=== PATIENT | female | born 1990 | race Caucasian/White ===

== ENCOUNTER 2016-11-10 03:08 | Inpatient (IN) | payer OTHER ==
[~2016-11-10] VITALS: Ht 162.6 cm; Wt 84.3 kg
[2016-11-10] MEDS ORDERED: PRENAT PO (03:27)
[2016-11-10 03:28] VITALS: Ht 162.6 cm; Wt 84.3 kg
[2016-11-10 03:29] VITALS: BP 120/73; PULSE 86; RESP 18
[2016-11-10] MEDS ORDERED: LACTATED RINGER'S 1,000 ML IV SCH ×2 (03:31)
[2016-11-10 03:45] VITALS: BP 130/65; PULSE 82; RESP 18
--- NOTE | 2016-11-10 03:45 | TRIAGE ---
OB Triage Datetime Report Generated by CPN: 11/10/2016 03:44 Datetime: 11/10/2016 03:30 Time of Arrival: 11/10/2016 03:30 EGA: 40.4 Arrived By: Wheelchair Arrived From: TRIAGE Datetime: 11/10/2016 03:19 Vaginal Exam Dilatation (cms): 4.5 Effacement (%): 90 Station: -2 Exam By: Twan Gonzalez RN Membrane Status: Bulging Vaginal Bleeding: Normal Show Cervix, Consistency: Soft Cervix, Position: Posterior Presentation 'A': Cephalic Datetime: 11/10/2016 03:16 Stage of : OB Triage Assessment Type: Triage Time of Arrival: 11/10/2016 03:03 EGA: 40.4 Arrived By: Ambulatory Arrived From: Home Chief Complaint: Contractions Movement: Present Contractions: Regular Time Contractions Began: 11/10/2016 01:00 Contractions: Every 5 minutes Rupture of Membranes: Denies Vaginal Bleeding: None Vaginal Discharge: Denies Recent Sexual Intercouse: Denies Abdominal Trauma: Not Applicable Patient Complaints: Contractions Time Provider Notified: 11/10/2016 03:23 Provider Notified: Dr. Ramos Initial Plan: CEFM, VE Maternal Assessment Level of Consciousness: Fully Conscious DTR's/Clonus: DTRs 2+; No Clonus Headache: Denies Blurred Vision: No Respiratory Effort: Unlabored; Regular Rhythm; Equal Expansion Breath Sounds, Left: Clear and Equal Breath Sounds, Right: Clear and Equal Nausea/Vomiting: Denies RUQ Epigastric Pain: Denies Lower Extremities Edema: None Degree: None Upper Extremities Edema: None Degree: None Facial Edema: None Temperature Route: Oral Fall Risk Assessment History of Falling: (0) No Secondary Diagnosis: (0) No Ambulatory Aid: (0) Bedrest/Nurse Assist IV Therapy: (0) No Gait: (0) Normal/Bedrest/Immobile Mental Status: (0) Oriented to Own Ability Fall Score: 0 Fall Risk Score Definition: No Risk: No action required Pain Assessment Pain Scale: 6 Pain Presence: Intermittent Pain Type: Cramping Pain Location: Abdomen Datetime: 11/07/2016 10:13 Labor Evaluation Frequency: 1-2 Monitor Mode: External Duration (sec)2399: 40-60 Quality: Mild Contraction Comments: pt. denies uc's, cramping, or back pain Heart Rate FHR Baseline Rate: 145 Monitor Mode: External US Variability: Moderate 6-25 bpm Accelerations: 15X15 Decelerations: None Comments: periods on 135 baseline Datetime: 11/07/2016 09:32 Stage of : OB Triage Datetime: 11/07/2016 09:06 Assessment Type: Triage Maternal Assessment Level of Consciousness: Fully Conscious DTR's/Clonus: DTRs 2+; No Clonus Headache: Denies Blurred Vision: No Respiratory Effort: Unlabored; Regular Rhythm; Equal Expansion Breath Sounds, Left: Clear and Equal Breath Sounds, Right: Clear and Equal Nausea/Vomiting: Denies RUQ Epigastric Pain: Denies Lower Extremities Edema: None Upper Extremities Edema: None Facial Edema: None Fall Risk Assessment History of Falling: (0) No Secondary Diagnosis: (0) No Ambulatory Aid: (0) Bedrest/Nurse Assist IV Therapy: (0) No Gait: (0) Normal/Bedrest/Immobile Mental Status: (0) Oriented to Own Ability Fall Score: 0 Fall Risk Score Definition: No Risk: No action required Datetime: 11/07/2016 09:05 Time of Arrival: 11/07/2016 08:50 EGA: 40.1 Arrived By: Ambulatory Arrived From: Home Chief Complaint: pt. here w/ order for nst, bpp, efw for post dates Movement: Present Contractions: Irregular Rupture of Membranes: Denies Vaginal Bleeding: None Vaginal Discharge: Denies Recent Sexual Intercouse: Denies Abdominal Trauma: Not Applicable Patient Complaints: None Time Provider Notified: 11/07/2016 09:15 Provider Notified: denise Heart Rate FHR Baseline Rate: 145 Monitor Mode: External US Variability: Moderate 6-25 bpm Decelerations: None Datetime: 11/07/2016 09:00 Maternal Assessment Level of Consciousness: Fully Conscious DTR's/Clonus: DTRs 2+ Headache: Denies Blurred Vision: No Nausea/Vomiting: Denies RUQ Epigastric Pain: Denies Facial Edema: None Pain Presence: None/Denies
[2016-11-10] MEDS ORDERED: OXYTOCIN 30 UNITS/LR 500 ML IV SCH (04:00)
[2016-11-10] MEDS ORDERED: OXYTOCIN 30 UNITS/LR 500 ML IV PRN (04:00)
[2016-11-10] MEDS ORDERED: METHYLERGONOVINE 0.2 MG INJ IM PRN (04:00)
[2016-11-10] MEDS ORDERED: LIDOCAINE 1% (MPF) 30 ML INJ INJ PRN (04:00)
[2016-11-10] MEDS ORDERED: BUTORPHANOL 2 MG INJ IV PRN (04:00)
[2016-11-10] MEDS ORDERED: MISOPROSTOL 200 MCG TAB PR PRN (04:00)
[2016-11-10] MEDS ORDERED: IBUPROFEN 600 MG TAB PO PRN (04:00)
[2016-11-10] MEDS ORDERED: LACTATED RINGER'S 1,000 ML IV PRN (04:00)
[2016-11-10] MEDS ORDERED: CARBOPROST 250 MCG INJ IM PRN (04:00)
[2016-11-10 04:09] LABS: INR 0.91; PROTIME 12.3 Sec (12.2-14.2)
[2016-11-10 04:10] LABS: PARTIAL THROMBOPLASTIN TIME 28.7 Sec (25.0-35.0)
[2016-11-10 04:12] LABS: EOSINOPHILS % 0.3 % (0.0-7.0); HEMATOCRIT 36.4 % (37.0-47.0); HEMOGLOBIN 12.3 g/dl (12.0-16.0); LYMPHOCYTES % 14.6 % (15.0-51.0); MEAN CORPUSCULAR HEMOGLOBIN 30.7 pg (29.0-33.0); MEAN CORPUSCULAR HGB CONC 33.6 g/dl (32.0-37.0); MEAN CORPUSCULAR VOLUME 91.1 fl (82.0-101.0); MEAN PLATELET VOLUME 9.6 fl (7.4-10.4); MONOCYTE # 0.6 10^3/ul (0.3-0.9); MONOCYTES % 4.2 % (0.0-11.0); NEUTROPHIL # 10.9 10^3/ul (1.6-7.5); NEUTROPHILS % 80.9 % (39.0-77.0); PLATELET COUNT 250 10^3/UL (140-440); RED CELL DISTRIBUTION WIDTH 13.4 % (11.5-14.5); UNCORRECTED WBC 13.5 10^3/ul (4.8-10.8); WHITE BLOOD COUNT 13.5 10^3/ul (4.8-10.8)
[2016-11-10 04:15] LABS: CONDITION 1
[2016-11-10] MEDS ORDERED: FENTAnyl 2MCG/ML-ROPIV 0.2% 100 ML ONE (04:54)
[2016-11-10] MEDS ORDERED: LACTATED RINGER'S 1,000 ML IV ONE (05:24)
[2016-11-10] MEDS ORDERED: NALOXONE (0.4 MG/ML) INJ IV PRN (05:30)
[2016-11-10] MEDS ORDERED: FENTAnyl 2MCG/ML-ROPIV 0.2% 100 ML BAG EPI SCH (05:30)
[2016-11-10] MEDS ORDERED: HYDROmorphONE 1 MG/ML SYG IV PRN ×2 (05:30)
[2016-11-10] MEDS ORDERED: ONDANSETRON 4 MG INJ IV PRN ×2 (05:30→16:30)
[2016-11-10] MEDS ORDERED: DIPHENHYDRAMINE 50 MG INJ IV PRN (05:30)
[2016-11-10] MEDS ORDERED: KETOROLAC 30 MG INJ IV PRN (05:30)
[2016-11-10] MEDS ORDERED: PROCHLORPERAZINE 10 MG INJ IV PRN (05:30)
[2016-11-10] MEDS: OXYTOCIN 30 UNITS/LR 500 ML IV SCH ×4 (12:37→20:28)
--- NOTE | 2016-11-10 13:25 | HP ---
Date/Time of Note Date/Time of Note DATE: 11/10/16 TIME: 13:15 OB - History Hx of Present Free Text/Dictation 25 years old [place] female 1 para 0 with EDC November 06/2016 admitted to in active labor, on admission her vital signs were stable temperature 98.2 pulse 86 respiration 18 and blood pressure 120/73 vaginal examination cervical dilatation 4-5 cm 90 percent effacement vertex presentation at -1 station position occiput posterior Chief Complaint: labor pain Estimated Due Date: Nov 06, 2016 : 1 Para: 0 Spontaneous : 0 Therapeutic : 0 Care: Good Care Ultrasounds: Normal mid trimester US Obstetrical Complications: None Medical Complications: None Past Family/Social History * Past Medical, Surgical, Family and Obstetric Histories reviewed from chart. Rubella: immune RPR/VDRL: Negative GBS Status: Negative OB Admission Exam Vital Signs Vital Signs Vital Signs Date Time Temp Pulse Resp B/P Pulse Ox O2 Delivery O2 Flow Rate FiO2 11/10/16 03:45 98.2 82 18 130/65 Room Air Physical Exam HEENT: WNL Heart: Rhythm Normal Abdomen: WNL Extremities: Normal Reflexes: Normal Cervical Dilatation: 5cm Effacement: Other (90%) Station: -1 Amniotic Fluid: Thin Meconium Heart Rate: 130's Accelerations: Accelerations Present Varibility: Moderate Contractions on Admission: < 5 Minutes Apart Intensity: Firm Last 72 hours Lab Results CBC & BMP 11/10/16 03:40 SIN TERAN MD Nov 10, 2016 13:25
--- NOTE | 2016-11-10 13:40 | LDN ---
Date/Time of Note Date/Time of Note DATE: 11/10/16 TIME: 13:25 Delivery Summary Normal spontaneous vaginal delivery of a baby girl from lot position with spontaneous rotation to occiput anterior shoulders delivered without any difficulty rest of the baby's body followed ,cord clamped after stopped pulsation cord was meconium stained, placenta spontaneous expulsion meconium stained membranes, inspected complete placenta sent to pathology patient sustained a third degree laceration involving anal mucosa, anal mucosa approximated with 3-0 chromic catgut superficial levator ani approximated suturing with 2 interrupted 2-0 chromic catgut perineal mucosa approximated and paired with 3-0 chromic catgut perineal skin approximated and closed with 3-0 chromic catgut at the end digital rectal examination no suture material felt in the rectal mucosa as well as anal mucosa estimated blood loss 250 mL Problems: Delivery Information Sex Infant Sex: female Apgars 1 Minute: 7 5 Minute: 9 Suctioning Nose & mouth suctioned at terrell: Yes Delee suction performed: Yes Umbilical Cord Umbilical cord with: 3 Vessels Cord presentations: no nuchal cord Cord Blood was obtained: Yes SIN TERAN MD Nov 10, 2016 13:39
--- NOTE | 2016-11-10 14:45 | OPRPT ---
Intraop Record Datetime Report Generated by CPN: 11/10/2016 14:44 Datetime: 11/10/2016 03:23 Drug Allergies/Reactions: No Known Allergy (11/10/2016) Datetime: 11/07/2016 09:05 Latex Allergies/Reactions: No Latex Allergies Datetime: 11/04/2016 16:11 Drug Allergies/Reactions: No Known Allergy (01/14/2012)
--- NOTE | 2016-11-10 14:45 | DELSUM ---
Delivery Summary A-C Datetime Report Generated by CPN: 11/10/2016 14:44 DELIVERY PERSONNEL Ink Grinder: Jaylene Steen MATERNAL INFORMATION Delivery Anesthesia: Epidural Medications in Delivery: 30 UNITS PITOCIN IN 500 ML LR Estimated Blood Loss (ml): 250 Placenta Cultured: No Maternal Complications: None LABOR SUMMARY EDC: 11/06/2016 00:00 No. Babies in Womb: 1 Attempted: No Labor Anesthesia: Epidural LABOR INFORMATION Reason for Induction: Not Applicable Onset of Labor: 11/10/2016 01:00 Complete Dilatation: 11/10/2016 11:22 Oxytocin: N/A Group B Beta Strep: Negative Antibiotics # of Doses: 0 Antibiotics Time of Last Dose: 0 Steroids Given: None Reason Steroids Not Administered: Not Applicable MEMBRANES Membranes Rupture Method: Spontaneous Rupture of Membranes: 11/10/2016 08:54 Length of Rupture (hr): 3.68 Amniotic Fluid Color: Heavy Meconium Amniotic Fluid Amount: Large Amniotic Fluid Odor: Normal STAGES OF LABOR Stage 1 hr: 10 Stage 1 min: 22 Stage 2 hr: 1 Stage 2 min: 13 Stage 3 hr: 0 Stage 3 min: 4 Total Time in Labor hr: 11 Total Time in Labor min: 39 VAGINAL DELIVERY Episiotomy: None Laceration Extension: Fourth Degree Laceration Type: Perineal Laceration Repair: Yes Initial Vag Sponge Count: 20 Final Vag Sponge Count: 20 Initial Vag Sharps Count: 2 Final Vag Sharps Count: 2 Sponge Count Correct: Yes; Vaginal Sweep Performed Sharps Count Correct: Yes BABY A INFORMATION Infant Delivery Date/Time: 11/10/2016 12:35 Method of Delivery: Vaginal Method of Delivery: Vaginal Born in Route : No : N/A Forceps: N/A Vacuum Extraction: N/A Shoulder Dystocia : N/A SHOULDER DYSTOCIA BABY A Delivery Date/Time: 11/10/2016 12:35 PRESENTATION/POSITION BABY A Presentation: Cephalic Presentation: Cephalic Cephalic Presentation: Vertex Cephalic Presentation: Vertex Vertex Position: Right Occipital Posterior Breech Presentation: N/A Breech Presentation: N/A PLACENTA INFORMATION BABY A Placenta Delivery Time : 11/10/2016 12:39 Placenta Method of Delivery: Spontaneous Placenta Method of Delivery: Spontaneous Placenta Status: Delivered SCORES BABY A Heart Rate 1 min: >100 bpm Resp Effort 1 min: Slow, Irregular Reflex Irritability 1 min: Cough/Sneeze/Pulls Away Muscle Tone 1 min: Active Motion Color 1 min: Blue/Pale SCORE 1 MIN: 7 Heart Rate 5 min: >100 bpm Resp Effort 5 min: Good Cry Reflex Irritability 5 min: Cough/Sneeze/Pulls Away Muscle Tone 5 min: Active Motion Color 5 min: Body [place], Extremit Blue SCORE 5 MIN: 9 INFANT INFORMATION BABY A Gestational Age at Delivery: 40.4 Gestational Status: Full Term- 39- 40.6 Weeks Outcome : Liveborn Condition : Stable Infant Condition : Stable Infant Sex: Female Sex: Female IDENTIFICATION/MEDS BABY A ID Band Number: [id number] ID Band Location: Right Leg; Left Arm Sensor Applied: Yes Sensor Number: [id number] Sensor Location : Cord Clamp Vitamin K Given : Not Given Erythromycin Given: Not Given WEIGHT/LENGTH BABY A Infant Birthweight (gm): 3510 Infant Weight (lb): 7 Weight (oz): 12 Infant Length (in): 20.00 Infant Length (cm): 50.80 CORD INFORMATION BABY A No. Cord Vessels: 3 Nuchal Cord : N/A Cord Blood Taken: Yes Suction: Mouth; Nose ASSESSMENT BABY A Infant Complications: Meconium Infant Complications- Other: THICK MEC.6 ML OF THICK MUCOUS SUCTIONED.CPAP O2 @25%GIVEN. Physical Findings at Delivery: Within Normal Limits Physical Findings- Other: AT 1302BLOOD SUGAR 124 Respirations: Grunting; Nasal Flaring; Sternal Retractions [employer] Salesperson/ALS Called : Yes Care By: pravin rt/ gaviota rn Transferred To: NICU
[2016-11-10 15:45] VITALS: BP 120/69; PULSE 73; RESP 20
[2016-11-10] MEDS ORDERED: LANOLIN 7 GM TUBE TOP PRN (16:30)
[2016-11-10] MEDS ORDERED: DIBUCAINE 1% 30 GM OINT PR PRN (16:30)
[2016-11-10] MEDS ORDERED: OXYCODONE/ASPIRIN (4.88/325) TAB PO PRN ×2 (16:30)
[2016-11-10] MEDS ORDERED: ACETAMINOPHEN 325 MG TAB PO PRN (16:30)
[2016-11-10] MEDS ORDERED: ACETAMINOPHEN/CODEINE #3 TAB PO PRN ×2 (16:30)
[2016-11-10] MEDS: WITCH HAZEL/GLYCERIN PAD PR PRN (17:15)
[2016-11-10] MEDS: BENZOCAINE 20% 56 ML SPRAY TOP PRN (17:16)
[2016-11-10] MEDS: IBUPROFEN 600 MG TAB PO SCH ×2 (18:00→23:44)
[2016-11-10 20:00] VITALS: BP 103/74; PULSE 74; RESP 20
[2016-11-10] MEDS: SENNA/DOCUSATE NA (8.6MG/50MG) TAB PO SCH (20:28)
[2016-11-11 04:00] VITALS: BP 104/56; PULSE 76; RESP 18
[2016-11-11] MEDS: IBUPROFEN 600 MG TAB PO SCH ×4 (05:29→23:37)
[2016-11-11 06:41] LABS: BASOPHIL # 0.1 10^3/ul (0.0-0.1); BASOPHILS % 0.4 % (0.0-2.0); EOSINOPHILS # 0.1 10^3/ul (0.0-0.5); HEMATOCRIT 30.5 % (37.0-47.0); HEMOGLOBIN 10.3 g/dl (12.0-16.0); LYMPHOCYTES # 3.1 10^3/ul (0.8-2.9); LYMPHOCYTES % 22.1 % (15.0-51.0); MEAN CORPUSCULAR HEMOGLOBIN 30.9 pg (29.0-33.0); MEAN CORPUSCULAR HGB CONC 33.7 g/dl (32.0-37.0); MEAN CORPUSCULAR VOLUME 91.7 fl (82.0-101.0); MEAN PLATELET VOLUME 10.4 fl (7.4-10.4); MONOCYTE # 0.5 10^3/ul (0.3-0.9); MONOCYTES % 3.8 % (0.0-11.0); NEUTROPHIL # 10.1 10^3/ul (1.6-7.5); NEUTROPHILS % 72.7 % (39.0-77.0); PLATELET COUNT 222 10^3/UL (140-440); RED BLOOD COUNT 3.33 10^6/ul (4.20-5.40); RED CELL DISTRIBUTION WIDTH 14.1 % (11.5-14.5); UNCORRECTED WBC 13.9 10^3/ul (4.8-10.8); WHITE BLOOD COUNT 13.9 10^3/ul (4.8-10.8)
[2016-11-11 06:56] LABS: CONDITION 1
[2016-11-11 07:45] VITALS: BP 103/68; PULSE 78; RESP 18
[2016-11-11] MEDS: SENNA/DOCUSATE NA (8.6MG/50MG) TAB PO SCH ×2 (09:17→20:53)
--- NOTE | 2016-11-11 09:47 | PN ---
Date/Time of Note Date/Time of Note DATE: 11/11/16 TIME: 09:46 OB Subjective Subjective Subjective day 1 Vital sign a stable afebrile abdomen soft uterus firm lochia normal extremity normal ambulation recommended Laboratory Tests Test 11/11/16 05:44 Basophils # 0.110^3/ul Basophils % 0.4% Blood Morphology Comment Eosinophils # 0.110^3/ul Eosinophils % 1.0% Hematocrit 30.5% Hemoglobin 10.3g/dl Lymphocytes # 3.110^3/ul Lymphocytes % 22.1% Mean Corpuscular Hemoglobin 30.9pg Mean Corpuscular Hemoglobin Concent 33.7g/dl Mean Corpuscular Volume 91.7fl Mean Platelet Volume 10.4fl Monocytes # 0.510^3/ul Monocytes % 3.8% Neutrophils # 10.110^3/ul Neutrophils % 72.7% Nucleated Red Blood Cells # 0.010^3/ul Nucleated Red Blood Cells % 0.0/100WBC Platelet Count 06467^3/UL Red Blood Count 3.3310^6/ul Red Cell Distribution Width 14.1% White Blood Count 13.910^3/ul Current Medications Medications (Trade) Dose Ordered Sig/Torrie Route PRN Reason Start Time Stop Time Status Last Admin Dose Admin Lactated Ringer's 1,000 ml @ 125 mls/hr Q8H IV 11/10/16 03:31 11/10/16 16:06 DC 11/10/16 04:19 Lactated Ringer's (Lr) 1,000 ml @ 125 mls/hr Q8H IV 11/10/16 03:31 11/10/16 03:39 DC Butorphanol Tartrate (Stadol) 2 mg Q2H PRN IV PAIN 11/10/16 04:00 11/10/16 16:06 DC Lidocaine 30 ml 30 ml ONCE PRN INJ EPISIOTOMY/TEARING 11/10/16 04:00 11/10/16 16:06 DC Oxytocin/Lactated Ringer's 500 ml @ 500 mls/hr ONCE -MAY REPEAT X1 IV 11/10/16 04:00 11/10/16 16:06 DC 11/10/16 13:01 Oxytocin/Lactated Ringer's 500 ml @ 125 mls/hr ONCE IV 11/10/16 04:00 11/10/16 16:06 DC Ibuprofen 600 mg 600 mg ONCE PRN PO Mild Pain (Pain Score 1-3) 11/10/16 04:00 11/10/16 16:06 DC 11/10/16 15:25 Lactated Ringer's 1,000 ml @ 2,000 mls/hr Q30M PRN IV PRE-EPIDURAL BOLUS 11/10/16 04:00 11/10/16 16:06 DC 11/10/16 03:49 Oxytocin/Lactated Ringer's 500 ml @ 0 mls/hr ONCE PRN IV For Hemorrhage Management 11/10/16 04:00 11/10/16 16:06 DC Methylergonovine Maleate (Methergine) 0.2 mg ONCE PRN IM VAGINAL BLEEDING 11/10/16 04:00 11/10/16 16:06 DC Carboprost Tromethamine (Hemabate) 250 mcg ONCE PRN IM VAGINAL BLEEDING 11/10/16 04:00 11/10/16 16:06 DC Misoprostol 1000 mcg 1,000 mcg ONCE PRN RI VAGINAL BLEEDING 11/10/16 04:00 11/10/16 16:06 DC Fentanyl/ Ropivacaine 100 ml @ ud STK-MED ONCE .ROUTE 11/10/16 04:54 11/10/16 04:55 DC Lactated Ringer's (Lr) 1,000 ml @ 1,000 mls/hr Q1H ONCE IV 11/10/16 05:24 11/10/16 06:23 DC 11/10/16 09:29 Naloxone HCl (Narcan) 0.1 mg Q2M PRN IV FOR RESP RATE 8 OR LESS 11/10/16 05:30 11/10/16 16:06 DC Ketorolac Tromethamine (Toradol) 30 mg Q6H PRN IV PAIN 11/10/16 05:30 11/10/16 16:06 DC Hydromorphone HCl (Dilaudid) 0.2 mg Q3H PRN IV PAIN LEVEL 1-5 11/10/16 05:30 11/10/16 16:06 DC Hydromorphone HCl (Dilaudid) 0.4 mg Q3H PRN IV PAIN LEVEL 6-10 11/10/16 05:30 11/10/16 16:06 DC Diphenhydramine HCl (Benadryl) 25 mg Q6H PRN IV ITCHING 11/10/16 05:30 11/10/16 16:06 DC Ondansetron HCl (Zofran Inj) 4 mg Q6H PRN IV NAUSEA AND/OR VOMITING 11/10/16 05:30 11/10/16 16:06 DC Prochlorperazine (Compazine Inj) 10 mg ONCE PRN IV NAUSEA AND/OR VOMITING 11/10/16 05:30 11/10/16 16:06 DC Fentanyl/ Ropivacaine 100 ml 100 ml EPIDURAL INFUSION EPI 11/10/16 05:30 11/10/16 16:06 DC Oxytocin/Lactated Ringer's 500 ml @ 125 mls/hr Q4H IV 11/10/16 16:03 11/11/16 00:02 DC 11/10/16 20:28 Ibuprofen (Motrin) 600 mg Q6 PO 11/10/16 18:00 11/11/16 05:29 Acetaminophen (Tylenol Tab) 650 mg Q4H PRN PO PAIN LEVEL 1-5 11/10/16 16:30 Acetaminophen/ Codeine Phosphate (Tylenol No.3) 1 tab Q4H PRN PO PAIN LEVEL 1-5 11/10/16 16:30 Acetaminophen/ Codeine Phosphate (Tylenol No.3) 2 tab Q4H PRN PO PAIN LEVEL 6-10 11/10/16 16:30 Oxycodone/Aspirin (Percodan) 1 tab Q3H PRN PO PAIN LEVEL 1-5 11/10/16 16:30 Oxycodone/Aspirin (Percodan) 2 tab Q3H PRN PO PAIN LEVEL 6-10 11/10/16 16:30 11/10/16 16:22 Ondansetron HCl (Zofran Inj) 4 mg Q6H PRN IV NAUSEA AND/OR VOMITING 11/10/16 16:30 Senna/Docusate Sodium (Senokot-S) 1 tab BID PO 11/10/16 21:00 11/11/16 09:17 Witch Margarita/ Glycerin (Tucks Pads) 1 pad BEDSIDE MEDICATION PRN RI HEMORRHOID/EPISIOTMY PAIN 11/10/16 16:30 11/10/16 17:15 Benzocaine (Dermoplast Boaz) 1 spray BEDSIDE MEDICATION PRN TOP HEMORRHOID/EPISIOTMY PAIN 11/10/16 16:30 11/10/16 17:16 Dibucaine (Nupercainal) 1 applic BEDSIDE MEDICATION PRN RI HEMORRHOID/EPISIOTMY PAIN 11/10/16 16:30 Lanolin (Sov-F-Pazaqb) 1 applic BEDSIDE MEDICATION PRN TOP BEDSIDE FOR SUSANA TO NIPPLES 11/10/16 16:30 Measles/Mumps/ Rubella Vaccine Live (Mmr Ii Vaccine) 0.5 ml ONCE ONCE SC* 11/12/16 09:00 11/12/16 09:01 SIN TERAN MD Nov 11, 2016 09:47
[2016-11-11 16:00] VITALS: BP 128/80; PULSE 86; RESP 18
[2016-11-11 20:10] VITALS: BP 120/88; PULSE 86; RESP 18
[2016-11-12 04:05] VITALS: BP 106/65; PULSE 76; RESP 18
[2016-11-12] MEDS: IBUPROFEN 600 MG TAB PO SCH ×2 (06:33→11:50)
[2016-11-12] MEDS: BENZOCAINE 20% 56 ML SPRAY TOP PRN (06:37)
[2016-11-12] MEDS: WITCH HAZEL/GLYCERIN PAD PR PRN (06:38)
[2016-11-12 08:38] VITALS: BP 102/65; PULSE 65; RESP 18
[2016-11-12] MEDS: SENNA/DOCUSATE NA (8.6MG/50MG) TAB PO SCH (08:49)
[2016-11-12] MEDS ORDERED: MEASLES,MUMPS,RUBELLA VACCINE INJ SC* ONE (09:00)
--- NOTE | 2016-11-12 14:03 | PD.PPDC ---
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
--- NOTE | 2016-11-12 14:05 | DS ---
Date/Time of Note Date/Time of Note DATE: 11/12/16 TIME: 14:03 Obstetrical Discharge Record Final Diagnosis Final Diagnosis: Term delivered Vaginal Delivery Obstetrical Delivery: Spontaneous Condition on Discharge Physical Assessment Last Vitals: day 2 Vital sign is stable afebrile abdomen soft uterus firm lochia normal extremity normal care instructions given recommended to make appointment for check in 2 weeks Voiding: Yes Bowel Movement: Yes Breast: Soft, non-tender, Filling Fundus: Firm Calf Tenderness: No Patient Condition: Good SIN TERAN MD Nov 12, 2016 14:05
== END 2016-11-12 15:30 | disposition home or self-care (01) | DRG 775 ==
LOC: OBT 03:08 → L-D 03:09 → OBT 03:41 → L-D 03:43 → PP1 15:41
PROVIDERS: ADMIT Obstetrics & Gynecology; ATTEND Obstetrics & Gynecology
PROC: 10E0XZZ Delivery of Products of Conception, External Approach (ICD-10-PCS; principal; 2016-11-10)
PROC: 0DQR0ZZ Repair Anal Sphincter, Open Approach (ICD-10-PCS; 2016-11-10)
DX: O70.3 Fourth degree perineal laceration during delivery (principal); Z37.0 Single live birth; Z3A.40 40 weeks gestation of pregnancy
CPT/HCPCS: 62319; 85025; 85610; 85730; 86592; 86900; 86901; 87340; 99464; G0463; J2590; J3010; J7120

== ENCOUNTER 2016-12-09 20:34 | Inpatient (IN) | payer OTHER ==
[~2016-12-09] VITALS: Ht 162.6 cm; Wt 73.5 kg
[~2016-12-09 20:34] MED LIST: PRENAT PO
[2016-12-10] MEDS ORDERED: ACETAMINOPHEN 325 MG TAB PO STA (01:53)
[2016-12-10] MEDS ORDERED: SODIUM CHLORIDE 0.9% 1L BAG IV* STA (01:53)
[2016-12-10 02:44] LABS: ADD UMIC YES; URINE BILIRUBIN (Dip) NEGATIVE (NEGATIVE); URINE BLOOD (Dip) 1+ (NEGATIVE); URINE COLOR LT. YELLOW (YELLOW); URINE GLUCOSE (Dip) NEGATIVE (NEGATIVE); URINE KETONES (Dip) NEGATIVE (NEGATIVE); URINE LEUKOCYTE ESTERASE (Dip) 2+ (NEGATIVE); URINE NITRITE (Dip) NEGATIVE (NEGATIVE); URINE TOTAL PROTEIN (Dip) NEGATIVE (NEGATIVE); URINE UROBILINOGEN (Dip) 0.2 E.U./dL (0.1-1.0)
--- NOTE | 2016-12-10 02:44 | RADRPT ---
PROCEDURE: CHEST - 1 VIEW CLINICAL INDICATION: 25-year-old female with sepsis. TECHNIQUE: A single frontal AP semi-erect view of the chest was performed portably. The images we re reviewed on a PACS workstation. COMPARISON: None. FINDINGS: The cardiomediastinal silhouette has a normal appearance. There is mild left basilar subsegmental at electasis.. The pulmonary vascularity is within normal limits. There is no evidence for pneumothora x or pneumomediastinum. The osseous structures are intact. IMPRESSION: Mild left basilar subsegmental atelectasis. A superimposed subtle infiltrate cannot be excluded. Cl inical correlation is necessary. .Mejia Esquivel MD, Date Time Electronically viewed and signed by .Mejia Esquivel MD, on 12/10/2016 02:43 .M/
[2016-12-10 02:45] LABS: BASOPHIL # 0.1 10^3/ul (0.0-0.1); BASOPHILS % 0.6 % (0.0-2.0); EOSINOPHILS # 0.1 10^3/ul (0.0-0.5); EOSINOPHILS % 0.3 % (0.0-7.0); HEMATOCRIT 34.3 % (37.0-47.0); HEMOGLOBIN 11.4 g/dl (12.0-16.0); LYMPHOCYTES # 2.8 10^3/ul (0.8-2.9); LYMPHOCYTES % 13.8 % (15.0-51.0); MEAN CORPUSCULAR HEMOGLOBIN 29.5 pg (29.0-33.0); MEAN CORPUSCULAR HGB CONC 33.2 g/dl (32.0-37.0); MEAN CORPUSCULAR VOLUME 88.8 fl (82.0-101.0); MEAN PLATELET VOLUME 9.1 fl (7.4-10.4); MONOCYTE # 0.8 10^3/ul (0.3-0.9); MONOCYTES % 3.9 % (0.0-11.0); NEUTROPHIL # 16.5 10^3/ul (1.6-7.5); NEUTROPHILS % 81.4 % (39.0-77.0); PLATELET COUNT 487 10^3/UL (140-440); RED BLOOD COUNT 3.86 10^6/ul (4.20-5.40); RED CELL DISTRIBUTION WIDTH 13.6 % (11.5-14.5); UNCORRECTED WBC 20.2 10^3/ul (4.8-10.8); WHITE BLOOD COUNT 20.2 10^3/ul (4.8-10.8)
[2016-12-10 02:46] LABS: CONDITION 1; LH ANALYZER COMMENTS 1
[2016-12-10 02:51] LABS: INR 1.05; PROTIME 13.7 Sec (12.2-14.2); PT RATIO 1.1
[2016-12-10 02:52] LABS: PARTIAL THROMBOPLASTIN TIME 34.8 Sec (25.0-35.0)
[2016-12-10 02:59] LABS: BACTERIA,URINE MODERATE; SQUAMOUS EPITHELIAL CELL,UR MODERATE
[2016-12-10 03:00] LABS: ALBUMIN 3.6 g/dl (3.3-4.9); POTASSIUM 3.7 mmol/L (3.5-5.1); SODIUM 143 mmol/L (135-144)
[2016-12-10 03:02] LABS: CREATININE 0.82 mg/dl (0.44-1.00)
[2016-12-10 03:03] LABS: ALANINE AMINOTRANSFERASE 25 IU/L (13-69); ALBUMIN/GLOBULIN RATIO 0.78; ALKALINE PHOSPHATASE 125 IU/L (42-121); ANION GAP 19 (8-16); ASPARTATE AMINO TRANSFERASE 17 IU/L (15-46); BILIRUBIN,INDIRECT 0.2 mg/dl (0-1.1); BILIRUBIN,TOTAL 0.2 mg/dl (0.2-1.3); BLOOD UREA NITROGEN 10 mg/dl (7-20); CARBON DIOXIDE 24 mmol/L (21-31); GLUCOSE 97 mg/dl (70-220); TOTAL PROTEIN 8.2 g/dl (6.1-8.1)
[2016-12-10 03:19] LABS: CHLORIDE 104 mmol/L (97-110); TROPONIN-I < 0.012 ng/ml (0.00-0.12)
[2016-12-10] MEDS ORDERED: CEFTRIAXONE 1 GM/50 ML (PMX) 50 ML IVPB ONE (04:30)
[2016-12-10 07:23] VITALS: TEMP 98.8
[2016-12-10 08:26] VITALS: BP 100/60; RESP 18
[2016-12-10] MEDS ORDERED: ONDANSETRON 4 MG INJ IV PRN (08:30)
[2016-12-10] MEDS ORDERED: ACETAMINOPHEN 325 MG TAB PO PRN (08:30)
[2016-12-10] MEDS ORDERED: morphine 2 MG INJ IV PRN (08:30)
[2016-12-10] MEDS ORDERED: VANCOMYCIN IV PER PHARMACY XX SCH (08:30)
[2016-12-10] MEDS ORDERED: HYDROCODONE/APAP (5/325) TAB PO PRN (08:30)
[2016-12-10] MEDS ORDERED: NACL 0.9% 3 ML SYG IV SCH (08:30)
[2016-12-10 09:00] VITALS: Ht 162.6 cm; Wt 73.5 kg
[2016-12-10] MEDS ORDERED: CEFEPIME 1GM/50 ML (PMX) 50 ML IVPB SCH (09:00)
[2016-12-10] MEDS: HEPARIN 5,000 UNIT/0.5 ML SYG SC SCH ×2 (09:03→21:55)
[2016-12-10] MEDS ORDERED: VANCOMYCIN 1.5 GM in SOD CHLORIDE 0.9% 250 ML IVPB SCH (10:30)
--- NOTE | 2016-12-10 12:03 | HP ---
DATE OF ADMISSION: 12/10/2016 TIME SEEN: 9:00 a.m. CHIEF COMPLAINT: Left breast swelling, redness and pain. HISTORY OF PRESENT ILLNESS: The patient is a 25-year-old female with a history of ovarian cysts, wh o is one month , who presented to the emergency department with the above stated chief com plaint. She states that the redness, swelling and pain on her left breast have been progressively g etting worse and was associated with subjective fever. She is 1 month , but she states th at she has not been breast feeding. As per the patient, the patient was actually seen by the primary care doctor and was given antibiotics, but she stated it did not help, and that is one of the reaso ns she came to the ER. When she presented to the ER, she was febrile with a temperature of 102.9, tachycardic with heart ra te of 119 and she had a white count also at 20,000. The chest x-ray shows that possible infiltrates and ultrasound of the breast did not show any abscess. She was started on antibiotic and admitted for further evaluation. REVIEW OF SYSTEMS: A 12-point review of systems was performed and is negative except as mentioned in HPI. PAST MEDICAL HISTORY: As per HPI. PAST SURGICAL HISTORY: Denies. SOCIAL HISTORY: Denies history of tobacco, alcohol or illicit drug use. ALLERGIES: NO KNOWN DRUG ALLERGIES. CARDIOVASCULAR: Negative. Laboratory data HPI. PAST MEDICAL HISTORY: ALLERGIES: NO KNOWN DRUG ALLERGIES. HOME MEDICATIONS: None. PHYSICAL EXAMINATION: VITAL SIGNS: When she came in, temperature was 102.9, heart rate 119, respiratory rate 20 and blood pressure was within normal limits. GENERAL: The patient is sitting up n on her bed, eating a breakfast. She is not in any acute distr ess. She is cooperative and answering questions appropriately. HEENT: No obvious head deformity. Pupils are reactive to light. Extraocular muscles intact. CARDIOVASCULAR: Tachycardic with regular rhythm. LUNGS: Clear. There is a palpable hardened area with overlying erythema on the left breast which is very tender to touch. No discharge. ABDOMEN: Soft, nontender, nondistended. Positive bowel sounds. EXTREMITIES: No edema. NEUROLOGIC: No focal deficits. LABORATORY: WBC 20,000, hemoglobin 11.4. Otherwise, the rest of her basic labs are within normal l imits. IMAGING: Breast ultrasound and chest x-ray with results as mentioned in the HPI. IMPRESSION: 1. Sepsis secondary to left breast cellulitis/mastitis. 2. Left breast cellulitis/mastitis. 3. Normocytic anemia. We need to evaluate for iron deficiency. 4. History of ovarian cyst. 5. One month . PLAN: Patient will be treated with broad spectrum antibiotic. We will follow up on the blood cultu re results. We will place an ID consult. Will consider additional imaging results of her left andrea st for further evaluation, but as mentioned, ultrasound that was done previously did not show any ab scess. Will check ferritin and iron profile to see if she has iron deficiency. Further workup and management per clinical course. Dictated By: RAGHU LUBIN/MAXINE Conf#: [id number] DID#: [id number]
[2016-12-10] MEDS ORDERED: METHYLPREDNISOLONE 40 MG INJ IM ONE (13:00)
[2016-12-10] MEDS ORDERED: DIPHENHYDRAMINE 50 MG INJ IM PRN (13:00)
[2016-12-10] MEDS ORDERED: METHYLPREDNISOLONE 40 MG INJ IV ONE (13:30)
--- NOTE | 2016-12-10 14:26 | PN ---
Date/Time of Note Date/Time of Note DATE: 12/10/16 TIME: 14:21 Assessment/Plan VTE Prophylaxis VTE Prophylaxis Intervention: SCD's Lines/Catheters IV Catheter Type (from [facility]): Saline Lock Urinary Cath still in place: No Assessment/Plan Chief Complaint/Hosp Course IMPRESSION: 1. Sepsis secondary to left breast cellulitis/mastitis. Versus gastroenteritis 2. Left breast cellulitis/mastitis. ultrasound that was done previously did not show any abscess. 3. Normocytic anemia. We need to evaluate for iron deficiency. 4. History of ovarian cyst. 5. One month . Continue multivitamin Further workup and management per clinical course. Problems: Subjective 24 Hr Interval Summary Free Text/Dictation Patient continues to have left breast discomfort and erythema No nausea vomiting Diarrhea has resolved Exam/Review of Systems Vital Signs Vitals Vital Signs Date Time Temp Pulse Resp B/P Pulse Ox O2 Delivery O2 Flow Rate FiO2 12/10/16 08:26 97.8 89 18 100/60 97 12/10/16 07:23 Room Air Exam General: The patient is well-developed, Not in acute distress. HEENT: Atraumatic, normocephalic. The pupils are equal and round . Neck: Supple with full range of motion. Chest: Normal expansion of the thorax during inspiration, erythema/cellulitis of medial aspect of the left breast, tender to touch Lungs: Clear to auscultation bilaterally Heart: Normal S1-S2, Regular rhythm and rate. Abdomen: Soft , nontender, nondistended , bowel sounds are present. Extremities: Normal to inspection, no edema no cyanosis Neurologic: Normal mental status,The patient is awake, alert and oriented . Results Result Diagram: 12/10/169 12/10/16218 Results 24 hrs Laboratory Tests Test 12/10/16 01:50 12/10/16 02:19 12/10/16 05:40 12/10/16 09:20 Urine Bacteria MODERATE Urine Bilirubin NEGATIVE Urine Clarity SL HAZY Urine Color LT. YELLOW Urine Glucose NEGATIVE Urine Hemoglobin 1+ H Urine Ketones NEGATIVE Urine Leukocyte Esterase 2+ H Urine Microscopic RBC 2-5 Urine Microscopic WBC 10-25 Urine Nitrite NEGATIVE Urine Specific [place] 1.010 Urine Squamous Epithelial Cells MODERATE Urine Total Protein NEGATIVE Urine Urobilinogen 0.2 E.U./dL Urine pH 5.5 Activated Partial Thromboplast Time 34.8 Alanine Aminotransferase (ALT/SGPT) 25 Albumin 3.6 Albumin/Globulin Ratio 0.78 Alkaline Phosphatase 125 H Anion Gap 19 H Aspartate Amino Transf (AST/SGOT) 17 Basophils # 0.1 Basophils % 0.6 Blood Urea Nitrogen 10 Calcium Level 8.0 L Carbon Dioxide Level 24 Chloride Level 104 Creatinine 0.82 Direct Bilirubin 0.00 Eosinophils # 0.1 Eosinophils % 0.3 Globulin 4.60 H Glucose Level 97 Hematocrit 34.3 L Hemoglobin 11.4 L INR International Normalized Ratio 1.05 Indirect Bilirubin 0.2 Lactic Acid Level 1.0 0.8 0.9 Lymphocytes # 2.8 Lymphocytes % 13.8 L Mean Corpuscular Hemoglobin 29.5 Mean Corpuscular Hemoglobin Concent 33.2 Mean Corpuscular Volume 88.8 Mean Platelet Volume 9.1 Monocytes # 0.8 Monocytes % 3.9 Neutrophils # 16.5 H Neutrophils % 81.4 H Nucleated Red Blood Cells # 0.0 Nucleated Red Blood Cells % 0.0 Platelet Count 487 #H Potassium Level 3.7 Prothrombin Time 13.7 Prothrombin Time Ratio 1.1 Red Blood Count 3.86 L Red Cell Distribution Width 13.6 Sodium Level 143 Total Bilirubin 0.2 Total Protein 8.2 H Troponin I < 0.012 White Blood Count 20.2 #H Medications Medications Current Medications Ondansetron HCl (Zofran Inj) 4 mg Q6H PRN IV NAUSEA AND/OR VOMITING; Start 12/10 at 08:30 Acetaminophen (Tylenol Tab) 650 mg Q6H PRN PO PAIN LEVEL 1-3 OR FEVER; Start at 08:30 Acetaminophen/ Hydrocodone Bitart ([place] (5/325)) 1 tab Q6H PRN PO MODERATE PAIN LEVEL 4-6; Start 12/10/16 at 08:30 Morphine Sulfate (morphine) 2 mg Q4H PRN IV SEVERE PAIN LEVEL 7-10; Start at 08:30 Heparin Sodium (Porcine) 5000 unit 5,000 unit Q12 SC Last administered on 09:03; Admin Dose 5,000 UNIT; Start 12/10/16 at 09:00 Cefepime HCl (Maxipime 1gm/50 ml (Pmx)) 50 ml @ 100 mls/hr Q12 IVPB Last administered on 12/10/16 10:22; Admin Dose 100 MLS/HR; Start 12/10/16 at 09:00 Prenat Multivit/ [place]/Iron/Folic Ac ( S) 1 tab DAILY PO ; Start at 09:00 Diphenhydramine HCl (Benadryl) 25 mg Q6H PRN IV redness Last administered on 13:09; Admin Dose 25 MG; Start 12/10/16 at 19:00 CHARLEE GOODE MD Dec 10, 2016 14:25
--- NOTE | 2016-12-10 15:06 | RADRPT ---
PROCEDURE: Bilateral breast ultrasound. CLINICAL INDICATION: Left wrist pain and swelling. TECHNIQUE: High-resolution sonography of both breasts was performed in the axial and sagittal plan es. COMPARISON: No prior study is available for comparison. FINDINGS: There is a region of extensive edema in the left breast 10 o'clock position. An irregular fluid pretty ection is present at this site measuring up to 2.8 x 1.7 cm. The breast parenchyma is otherwise normal with no other cystic or solid mass. IMPRESSION: 1. Extensive edema in the left breast 10 o'clock position with an irregular fluid collection at thi s site measuring up to 2.8 x 1.7 cm. This may be due to early abscess formation. 2. Any further management regarding any breast symptoms should be based upon clinical grounds. RPTAT: QQ .Manjeet Felton MD, Date Time Electronically viewed and signed by .Manjeet Felton MD, on 12/10/2016 15:06 .R/
--- NOTE | 2016-12-10 17:32 | CONS ---
DATE OF ADMISSION: 12/10/2016 DATE OF CONSULTATION: 12/10/2016 TYPE OF CONSULTATION: Infectious Disease. REASON FOR CONSULTATION: Antibiotic management. HISTORY OF PRESENT ILLNESS: Jacob Haines is a 25-year-old female who comes in with left breast swelling, redness and pain. Her past problems include: 1. History of ovarian cyst. 2. She is 1 month . She now presents with left breast swelling with induration, redness and pain. This has been going on for the last 3 weeks, 1 week after the of her child. She holly s not been . She was started on antibiotics by her primary care physician, but it did not help. In the emergency room, she was febrile with temperature of 102.9. She is tachycardic, he art rate of 119 and a white count of 20,000. Chest x-ray showed possible infiltrate. Ultrasound of the breast did not show any abscess, and she was started on vancomycin; however, she had a red man syndrome related to the vancomycin and according to what I can see, the vancomycin was stopped. She is currently on cefepime, but he should be on something that covers staph. As noted, the breast ul trasound showed extensive edema of the left breast at 10 o'clock position with irregular fluid colle ction at the site measuring 2.8 x 1.7. This may be due to early abscess formation . Any further man agement regarding any breast symptoms should be based on clinical grounds, so she does have possible abscess. Chest x-ray: Mild left basilar subsegmental atelectasis, superimposed subtle infiltrate cannot be excluded. PAST MEDICAL HISTORY: Operations as outlined. FAMILY HISTORY: Noncontributory. SOCIAL HISTORY: She does not smoke, drink or abuse drugs. ALLERGIES: NONE TO PENICILLIN, SULFA OR FOODS. MEDICATIONS: Per chart. REVIEW OF SYSTEMS: As per HPI. PHYSICAL EXAMINATION: GENERAL: The patient is a well-developed, well-nourished female who is alert, responsive, in no acu te distress. VITAL SIGNS: T-max of 102.9, heart rate of 119, respirations 20. SKIN: Without generalized rash. HEENT: Within normal limits. NECK: Supple. LYMPH NODES: None palpable. CHEST: Decreased breath sounds at the bases. HEART: Without murmur or gallop. ABDOMEN: Soft, nontender, nondistended. The left breast is indurated at between 8 and 10 o'clock. It is tender and red. HEART: Without murmur or gallop. ABDOMEN: Soft, nontender, without organosplenomegaly or masses. EXTREMITIES: Without cyanosis, clubbing, or edema. RECTAL AND GENITAL: Deferred. NEUROLOGIC: No focal neurological abnormality. IMPRESSION AND PLAN: The patient may require interventional radiology. I will dictate my findings to the hospitalist. Dictated By: KIANA CHAO MD, JD/MAXINE Conf#: [id number] DID#: [id number]
[2016-12-10] MEDS ORDERED: VANCOMYCIN 1 GM in NS 250 ML IVPB SCH (18:30)
[2016-12-10] MEDS ORDERED: DIPHENHYDRAMINE 50 MG INJ IV PRN (19:00)
[2016-12-10 19:43] VITALS: BP 107/61; RESP 20
--- NOTE | 2016-12-10 21:19 | CONS ---
DATE OF ADMISSION: 12/10/2016 DATE OF CONSULTATION: 12/10/2016 HISTORY OF PRESENT ILLNESS: Ms. Haines is a 25-year-old female who is 1 month . She at tempted for 1 week but failed, but for the past 3 weeks, she has noted engorgement of her left breast. Due to her worsening symptoms, she presented to the ER today due to the fact she i s having increased redness, swelling and pain of her left breast. In the ER, she had a temperature of 102.9, a heart rate of 119 and a white count of 20,000. PAST MEDICAL HISTORY: Noncontributory. PAST SURGICAL HISTORY: None. MEDICATIONS: None. ALLERGIES: NO KNOWN DRUG ALLERGIES. PHYSICAL EXAMINATION: GENERAL: She is a well-nourished, well-developed female in no apparent distress. VITAL SIGNS: She is currently afebrile. Vital signs stable. LEFT BREAST: A firm, indurated, fluctuant area consistent with an abscess. CHEST: Clear to auscultation bilaterally. HEART: Regular rhythm. LABORATORY DATA: White count of 20, hematocrit of 34 and platelets of 47. Sodium 143, potassium 3. 7, chloride 104, CO2 24, BUN and creatinine 10 and 0.8, glucose 97. IMAGING: An ultrasound of her breast revealed extensive edema in the left breast at 10-o'clock posi tion with irregular fluid collection measuring 2 x 1.7 cm. ASSESSMENT AND PLAN: Ms. Logan is a 25-year-old female with cellulitis and likely breast abscess . 1. Recommend ultrasound-guided drainage by Interventional Radiology. 2. Continue antibiotics. If symptoms worsen after drainage, please re-consult. Dictated By: RAHUL EUGENE/MAXINE Conf#: [id number] DID#: [id number]
[2016-12-10] MEDS: CLINDAMYCIN 900 MG/D5W (PMX) 50 ML IVPB SCH (21:58)
[2016-12-11 05:44] LABS: BASOPHIL # 0.4 10^3/ul (0.0-0.1); BASOPHILS % 2.7 % (0.0-2.0); HEMATOCRIT 33.8 % (37.0-47.0); HEMOGLOBIN 11.3 g/dl (12.0-16.0); LYMPHOCYTES # 1.9 10^3/ul (0.8-2.9); LYMPHOCYTES % 11.6 % (15.0-51.0); MEAN CORPUSCULAR HEMOGLOBIN 29.8 pg (29.0-33.0); MEAN CORPUSCULAR HGB CONC 33.4 g/dl (32.0-37.0); MEAN CORPUSCULAR VOLUME 89.2 fl (82.0-101.0); MEAN PLATELET VOLUME 9.4 fl (7.4-10.4); MONOCYTE # 0.5 10^3/ul (0.3-0.9); MONOCYTES % 3.1 % (0.0-11.0); NEUTROPHIL # 13.7 10^3/ul (1.6-7.5); NEUTROPHILS % 82.6 % (39.0-77.0); PLATELET COUNT 418 10^3/UL (140-440); RED BLOOD COUNT 3.79 10^6/ul (4.20-5.40); RED CELL DISTRIBUTION WIDTH 13.3 % (11.5-14.5); UNCORRECTED WBC 16.5 10^3/ul (4.8-10.8); WHITE BLOOD COUNT 16.5 10^3/ul (4.8-10.8)
[2016-12-11 06:23] LABS: ALBUMIN 3.2 g/dl (3.3-4.9)
[2016-12-11 06:24] LABS: POTASSIUM 4.4 mmol/L (3.5-5.1)
[2016-12-11 06:26] LABS: ALBUMIN/GLOBULIN RATIO 0.82; CREATININE 0.54 mg/dl (0.44-1.00); TOTAL PROTEIN 7.1 g/dl (6.1-8.1)
[2016-12-11 06:27] LABS: MAGNESIUM 2.2 mg/dl (1.7-2.5); PHOSPHORUS 4.5 mg/dl (2.5-4.9)
[2016-12-11] MEDS: CLINDAMYCIN 900 MG/D5W (PMX) 50 ML IVPB SCH ×3 (06:34→22:00)
[2016-12-11 06:37] LABS: IRON 68 ug/dl (35-150)
[2016-12-11 06:48] LABS: TOTAL IRON BINDING CAPACITY 207 ug/dl (241-421)
[2016-12-11 07:01] LABS: CONDITION 1
[2016-12-11 07:30] VITALS: BP 115/60; RESP 16
[2016-12-11 08:00] VITALS: PULSE 60
[2016-12-11] MEDS: MULTIVIT/MIN/FOLATE/IRON/PREN TAB PO SCH (08:20)
[2016-12-11] MEDS: HEPARIN 5,000 UNIT/0.5 ML SYG SC SCH ×2 (08:36→21:26)
--- NOTE | 2016-12-11 11:22 | PN ---
Date/Time of Note Date/Time of Note DATE: 12/11/16 TIME: 11:20 Assessment/Plan VTE Prophylaxis VTE Prophylaxis Intervention: SCD's Lines/C[facility]ters [facility] Urinary Cath still in place: No Assessment/Plan Chief Complaint/Hosp Course IMPRESSION: 1. Sepsis secondary to left breast cellulitis/mastitis. Versus gastroenteritis Improving 2. Left breast cellulitis/mastitis. ultrasound that was done previously demonstrated possible early abscess General surgery and interventional radiology has been consulted for possible ultrasound-guided drainage 3. Normocytic anemia. Continue to monitor 4. History of ovarian cyst. 5. One month . Continue multivitamin Further workup and management per clinical course. Problems: Subjective 24 Hr Interval Summary Free Text/Dictation Patient denies of any chest pain or shortness of breath Improvement in her left breast erythema and tenderness No nausea vomiting or diarrhea Exam/Review of Systems Vital Signs Vitals Vital Signs Date Time Temp Pulse Resp B/P Pulse Ox O2 Delivery O2 Flow Rate FiO2 12/11/16 08:00 60 12/11/16 07:30 97.7 16 115/60 99 12/10/16 07:23 Room Air Intake and Output 12/10/16 12/10/16 12/11/16 15:00 23:00 07:00 Intake Total 600 ml 580 ml 120 ml Balance 600 ml 580 ml 120 ml Exam General: The patient is well-developed, Not in acute distress. HEENT: Atraumatic, normocephalic. The pupils are equal and round . Neck: Supple with full range of motion. Chest: Normal , decrease in erythema of the left breast with abscess-like mass in the medial aspect of the left breast Lungs: Clear to auscultation bilaterally Heart: Normal S1-S2, Regular rhythm and rate. Abdomen: Soft , nontender, nondistended , bowel sounds are present. Extremities: Normal to inspection, no edema no cyanosis Neurologic: Normal mental status,The patient is awake, alert and oriented . Results Result Diagram: 12/11/16 0500 12/11/16 0505 Results 24 hrs Laboratory Tests Test 12/11/16 05:00 12/11/16 05:05 Basophils # 0.4 H Basophils % 2.7 H Eosinophils # 0.0 Eosinophils % 0.0 Ferritin 191.0 H Hematocrit 33.8 L Hemoglobin 11.3 L Lymphocytes # 1.9 Lymphocytes % 11.6 L Mean Corpuscular Hemoglobin 29.8 Mean Corpuscular Hemoglobin Concent 33.4 Mean Corpuscular Volume 89.2 Mean Platelet Volume 9.4 Monocytes # 0.5 Monocytes % 3.1 Neutrophils # 13.7 H Neutrophils % 82.6 H Nucleated Red Blood Cells # 0.0 Nucleated Red Blood Cells % 0.0 Platelet Count 418 Red Blood Count 3.79 L Red Cell Distribution Width 13.3 White Blood Count 16.5 H Alanine Aminotransferase (ALT/SGPT) 20 Albumin 3.2 L Albumin/Globulin Ratio 0.82 Alkaline Phosphatase 115 Anion Gap 18 H Aspartate Amino Transf (AST/SGOT) 13 L Blood Urea Nitrogen 9 Calcium Level 9.0 Carbon Dioxide Level 23 Chloride Level 108 Creatinine 0.54 Direct Bilirubin 0.00 Globulin 3.90 H Glucose Level 130 Indirect Bilirubin 0.0 Iron Level 68 Magnesium Level 2.2 Percent Iron Saturation 33 Phosphorus Level 4.5 Potassium Level 4.4 Sodium Level 145 H Total Bilirubin 0.0 L Total Iron Binding Capacity 207 L Total Protein 7.1 # Medications Medications Current Medications Ondansetron HCl (Zofran Inj) 4 mg Q6H PRN IV NAUSEA AND/OR VOMITING; Start 12/10 at 08:30 Acetaminophen (Tylenol Tab) 650 mg Q6H PRN PO PAIN LEVEL 1-3 OR FEVER; Start at 08:30 Acetaminophen/ Hydrocodone Bitart ([place] (5/325)) 1 tab Q6H PRN PO MODERATE PAIN LEVEL 4-6; Start 12/10/16 at 08:30 Morphine Sulfate (morphine) 2 mg Q4H PRN IV SEVERE PAIN LEVEL 7-10; Start at 08:30 Heparin Sodium (Porcine) (Heparin (5000 Units/0.5 ml)) 5,000 unit Q12 SC Last administered on 12/11/16 08:36; Admin Dose 5,000 UNIT; Start 12/10/16 at 09:00 Prenat Multivit/ [place]/Iron/Folic Ac ( S) 1 tab DAILY PO Last administered on 12/11/16 08:20; Admin Dose 1 TAB; Start 12/11/16 at 09:00 Diphenhydramine HCl 25 mg 25 mg Q6H PRN IV redness Last administered on 13:09; Admin Dose 25 MG; Start 12/10/16 at 19:00 Clindamycin HCl/ Dextrose (Cleocin 900 Mg/ D5W (Pmx)) 50 ml @ 50 mls/hr Q8 IVPB Last administered on 12/11/16t 06:34; Admin Dose 50 MLS/HR; Start 12/10/16 at 22 :00 CHARLEE GOODE MD Dec 11, 2016 11:22
[2016-12-11] MEDS ORDERED: LIDOCAINE 1% (MPF) 5 ML VIAL ONE (15:26)
--- NOTE | 2016-12-11 16:25 | RADRPT ---
PROCEDURE: Ultrasound guided left breast aspiration. CLINICAL INDICATION: Left breast fluid collection. TECHNIQUE: Prior to the procedure, informed consent was obtained. Risks including bleeding and in fection were explained to the patient. The patient understood was willing to proceed. A procedural pause was performed. The patient's name, date of , and procedure to be performed were verifie d. Using local anesthetic, sterile technique and ultrasound guidance, a 21-gauge needle was advanced in to the irregular fluid collection in the 10 o'clock position of the left breast. 4 ml of cloudy ser osanguineous fluid was aspirated. The needle was removed. The patient tolerated the procedure well . COMPARISON: Left breast ultrasound dated 12/10/2016. FINDINGS: Images demonstrate the needle within the fluid collection in the left breast. IMPRESSION: 1. Satisfactory ultrasound-guided left breast fluid aspiration. RPTAT: QQ .Manjeet Felton MD, Date Time Electronically viewed and signed by .Manjeet Felton MD, on 12/11/2016 16:25 .R/
--- NOTE | 2016-12-11 17:08 | PN ---
DATE: 12/11/2016 INFECTIOUS DISEASE PROGRESS NOTE SUBJECTIVE: No acute changes. The patient is alert, feels better. Looks comfortable. No fevers. WBC today 6.5, neutrophils 82.6, BUN 9, creatinine 0.54. MICROBIOLOGY: Blood cultures have been negative. Stool for C. diff negative. ANTIMICROBIALS: The patient is on IV clindamycin. PHYSICAL EXAMINATION: GENERAL: Well-nourished, well-developed young woman, who is alert, in no distress. HEENT: Head atraumatic, normocephalic. Sclerae are anicteric. Buccal mucosa pink. NECK: Supple. CHEST: Chest rise is symmetrical. Breath sounds clear. HEART: S1, S2. ABDOMEN: Soft. Bowel tones present. EXTREMITIES: Without cyanosis. SKIN: Left breast with decreased edema. Still with some hard area over the medial part and some pa in on palpation. ASSESSMENT: 1. Systemic inflammatory response syndrome. 2. Left breast cellulitis, possible abscess. 3. Status post recent delivery, 1 month . PLAN: The patient remains stable. She is being seen by surgery. She is improving on the current a ntimicrobials. We will continue her on the current regimen. Dictated By: JOSE TRIMBLE GLASS CLEANER for KIANA TATUM/MAXINE Conf#: [id number] DID#: [id number]
[2016-12-11 19:24] VITALS: BP 112/73; RESP 18
[2016-12-11 20:00] VITALS: BP 107/77; PULSE 72; RESP 18
[2016-12-12] MEDS: CLINDAMYCIN 900 MG/D5W (PMX) 50 ML IVPB SCH ×3 (05:31→21:37)
[2016-12-12 06:21] LABS: POTASSIUM 3.9 mmol/L (3.5-5.1)
[2016-12-12 06:23] LABS: CREATININE 0.78 mg/dl (0.44-1.00)
[2016-12-12 06:24] LABS: CALCIUM 8.5 mg/dl (8.4-10.2)
[2016-12-12 06:26] LABS: BASOPHILS % 0.3 % (0.0-2.0); EOSINOPHILS # 0.2 10^3/ul (0.0-0.5); EOSINOPHILS % 1.4 % (0.0-7.0); HEMATOCRIT 32.6 % (37.0-47.0); HEMOGLOBIN 11.2 g/dl (12.0-16.0); LYMPHOCYTES # 2.7 10^3/ul (0.8-2.9); LYMPHOCYTES % 17.9 % (15.0-51.0); MEAN CORPUSCULAR HEMOGLOBIN 30.3 pg (29.0-33.0); MEAN CORPUSCULAR HGB CONC 34.3 g/dl (32.0-37.0); MEAN CORPUSCULAR VOLUME 88.3 fl (82.0-101.0); MONOCYTE # 0.7 10^3/ul (0.3-0.9); MONOCYTES % 4.7 % (0.0-11.0); NEUTROPHIL # 11.5 10^3/ul (1.6-7.5); NEUTROPHILS % 75.7 % (39.0-77.0); PLATELET COUNT 474 10^3/UL (140-440); RED CELL DISTRIBUTION WIDTH 13.9 % (11.5-14.5); UNCORRECTED WBC 15.2 10^3/ul (4.8-10.8); WHITE BLOOD COUNT 15.2 10^3/ul (4.8-10.8)
[2016-12-12 07:42] LABS: CONDITION 1
[2016-12-12 08:10] VITALS: BP 98/59; RESP 18
[2016-12-12] MEDS: MULTIVIT/MIN/FOLATE/IRON/PREN TAB PO SCH (08:11)
[2016-12-12] MEDS: HEPARIN 5,000 UNIT/0.5 ML SYG SC SCH ×2 (08:16→21:46)
[2016-12-12] MEDS ORDERED: LIDOCAINE 1% (MDV) 20 ML INJ SC ONE (15:00)
[2016-12-12] MEDS ORDERED: HYDROmorphONE 1 MG/ML SYG IV PRN (15:30)
[2016-12-12] MEDS ORDERED: LORAZEPAM 2 MG INJ IV PRN (15:30)
[2016-12-12 15:42] LABS: PROTIME 13.2 Sec (12.2-14.2)
[2016-12-12 15:43] LABS: PARTIAL THROMBOPLASTIN TIME 30.8 Sec (25.0-35.0)
--- NOTE | 2016-12-12 15:55 | PDOCDIS ---
Discharge Instructions DIAGNOSIS Discharge Diagnosis: Left breast abscess. CONDITION Patient Condition: Stable HOME CARE INSTRUCTIONS: Special Diet: REGULAR OTHER ORDERS: Other Orders: 1. Complete the course of antibiotics. 2. Regular diet as tolerated. 3. Resume activities as tolerated. 4. Go to the nearest emergency room or call your primary care physician if you have worsening symptoms of left breast redness, swelling, secretions, persistent fevers, or any other unusual signs/symptoms. ABRAHAM MAGANA NP Dec 12, 2016 15:55
--- NOTE | 2016-12-12 16:30 | DS ---
DATE OF ADMISSION: 12/10/2016 DATE OF DISCHARGE: 12/13/2016 FINAL DIAGNOSES: 1. Left breast abscess status post IR-guided drainage. 2. Status post sepsis secondary to left breast abscess. 3. Normocytic, normochromic anemia. CONSULTANTS: 1. Dr. Roni Ring, infectious disease. 2. Dr. Alan Childers, general surgery. 3. Kurt Arias, KETTLE OPERATOR HEAD for infectious disease. HOSPITAL COURSE: This is a 25-year-old female with past medical history of ovarian cysts who is 1 month , currently not , who presented to the emergency department with a chief complaint of left breast swelling, redness, and pain. The patient also reported subjective fevers. The patient apparently saw her primary care doctor outside and was given antibiotics with no improvement in the symptoms. In the emergency room, the patient was noticed to be febrile with a temperature of 102.9 degrees Fahrenheit. The patient was also noticed to have leukocytosis. The patient underwent a breast ultrasound that showed extensive edema in the left breast at 10 o'clock position with an irregular fluid collection at this site measuring up to 2.8 x 1.7 cm. Provided the patient's history of present illness and the diagnostic findings, a clinical decision was made to admit the patient to inpatient setting to have her further evaluated. The patient was admitted to inpatient medical/surgical floor. An infectious disease consult and general surgery consult were called on this patient. The patient's blood culture remained negative. The patient's urine culture was inconclusive, although the patient had a positive urinalysis. The patient was evaluated by general surgery, and general surgery recommended an interventional radiology guided aspiration of the left breast abscess. The patient consequently underwent an ultrasound-guided aspiration of the left breast abscess that drained 4 mL of cloudy serosanguineous fluid. The patient's abscess fluid was positive for Staph. aureus. Meanwhile, the patient's leukocytosis improved, and the patient had no febrile episodes since the day of admission. As per the discussion with infectious disease, the patient is to be discharged home on oral Zyvox versus IV vancomycin; however, the patient had Sena syndrome reaction to IV vancomycin on 12/10/2016. Hence, after discussion with infectious diseases, the patient is going to be discharged home on IV clindamycin. Oral Zyvox will not be available until 12/15/2016 because of insurance reasons. Hence, a clinical decision was made to put a PICC line and to discharge the patient home on IV antibiotics with home health arranged. Hence, the patient had a PICC line inserted on 12/12/2016. Home health was arranged by case management, and the patient is stable to be discharged home. The patient had no significant pain in the left breast that necessitated analgesics. Hence, the patient was not given any prescription for analgesics. The patient had a stable hospital course. The patient was cleared by consultants to be discharged home. DISCHARGE DISPOSITION AND PLAN: The patient will be discharged home today. The patient was instructed to take a regular diet as tolerated. The patient was instructed to complete the course of IV antibiotics. The patient was instructed on PICC line care. The patient was instructed to resume activities as tolerated. The patient was instructed to go to the nearest emergency room if she has worsening symptoms of left breast redness, drainage, persistent fevers, or any other unusual signs or symptoms. The patient verbalized understanding of her discharge instructions. CONDITION AT DISCHARGE: Stable. DISCHARGE MEDICATIONS: Clindamycin 900 mg IV piggyback q. 8 hours (last day 04/2017.) PERTINENT LABORATORY AND DIAGNOSTIC DATA: 1. Chest x-ray upon admission: Mild left basilar subsegmental atelectasis. 2. Breast ultrasound: Extensive edema in the left breast 10 o'clock position with irregular fluid collection at this site measuring up to 2.8 x 1.7 cm. 3. On 12/11/2016, ultrasound-guided aspiration of left breast abscess with 4 mL of cloudy serosanguineous fluid aspirated. 4. Breast abscess culture positive for Staphylococcus aureus. 5. Blood culture x2 negative. 6. Urine culture inconclusive. 7. Stool for C. difficile negative. 8. Stool culture showing Staphylococcus aureus and coliform bacteria. 9. Latest CBC: WBC 15.2, hemoglobin 11.2, hematocrit 32.6, platelet count 474. 10. Latest BMP: Sodium 141, potassium 3.9, chloride 102, carbon dioxide 25, anion gap 18, BUN 13, creatinine 0.7, glucose 93, calcium 8.5. 11. Iron panel: Iron 68, TIBC 207, saturation 33, ferritin 191. At this time, I would like to thank all the consultants for seeing the patient, doing the necessary procedures, and providing clinical recommendations. The case and management of this patient was fully discussed with Dr. Sanchez. Approximately 40 minutes was spent on coordinating the discharge on this patient. ABRAHAM SANCHEZ MD, AM/MAXINE Conf#: [id number] DID#: [id number] MTDD
--- NOTE | 2016-12-12 16:33 | PN ---
DATE: 12/12/2016 SUBJECTIVE: Patient is alert, looks comfortable, wants to go home. No fevers. WBC today 15.2, platelets 474, no shift, no bands. BUN 13, creatinine 0.78. MICROBIOLOGY: This patient had a left breast fluid aspiration that is growing Staphylococcus aureus preliminary. ANTIMICROBIALS: The patient is on IV clindamycin. PHYSICAL EXAMINATION: GENERAL: A well-developed young woman who is alert, in no distress. HEENT: Head atraumatic, normocephalic. Sclerae anicteric. Buccal mucosa pink. NECK: Supple, trachea midline. CHEST: Rise symmetrical. Breath sounds clear. HEART: S1, S2. ABDOMEN: Soft. Bowel tones present. EXTREMITIES: Without cyanosis or edema. SKIN: With left breast resolving erythema, but still with area of hardness on palpation and some p ain. ASSESSMENT: 1. Systemic inflammatory response syndrome. 2. Left breast cellulitis with abscess, status post aspiration of 4 mL only with culture preliminar y growing Staphylococcus aureus. PLAN: The patient remains stable. She is being cleared by surgery for discharge. She still has so me tenderness on palpation of her left breast. We will recommend to send her on IV vancomycin until resolution of her symptoms or IV Bactrim. Another is going to be p.o. Zyvox if insurance approves. Dictated By: JOSE TRIMBLE RESTORATIVE REHAB AIDE for KIANA TATUM/MAXINE Conf#: [id number] DID#: [id number]
--- NOTE | 2016-12-12 16:47 | RADRPT ---
PROCEDURE: XR Chest. CLINICAL INDICATION: PICC line catheter placement. TECHNIQUE: Single frontal view of the chest was obtained COMPARISON: Chest x-ray 12/10/2016. FINDINGS: The soft tissues are normal. The bony elements are normal. The heart, left side aorta, cardiomedias tinal silhouette, pulmonary vasculature and hilar structures are normal. The lungs are clear. The co stophrenic angles are normal. The PICC line catheter enters the left arm with its tip in the superio r vena cava. No pneumothorax is identified. IMPRESSION: 1. Normal chest x-ray. 2. The PICC line catheter is well positioned in the superior vena cava at the junction with the rig ht atrium. RPTAT:AAJJ Physician Simin Date Time Electronically viewed and signed by Physician Simin on 12/12/2016 16:46 JASPER/
--- NOTE | 2016-12-12 16:52 | RADRPT ---
PROCEDURE: US guidance for PICC line CLINICAL INDICATION: PICC line placement TECHNIQUE: Multiple real-time images were acquired of the patient's arm utilizing a high resolutio n transducer. This was performed by the PICC line nurse for venous access. COMPARISON: None FINDINGS: Ultrasound guidance for PICC line placement. IMPRESSION: Ultrasound guidance for PICC line placement. RPTAT: AA .Javier Carcamo MD, MD Date Time Electronically viewed and signed by .Javier Carcamo MD, on 12/12/2016 16:51 .S/
[2016-12-12] MEDS ORDERED: SOD CHLORIDE 0.9% 100 ML ONE (17:00)
--- NOTE | 2016-12-12 19:11 | PN ---
Date/Time of Note Date/Time of Note DATE: 12/12/16 TIME: 19:02 Assessment/Plan VTE Prophylaxis VTE Prophylaxis Intervention: heparin Lines/Catheters [facility] PICC Line Central line still needed: Yes Urinary Cath still in place: No Assessment/Plan Chief Complaint/Hosp Course 1. Left breast abscess. S/P ultrasound guided drainage. Continue antibiotics as per ID. 2. S/P sepsis secondary to left breast abscess. Continue antibiotics as per ID. 3. Fluids, electrolytes, and nutrition. Regular diet as tolerated. 4. DVT prophylaxis. SQ heparin. 5. Gastrointestinal prophylaxis. Not indicated. 6. Plan. Obtain PICC line. Discharge the patient home once PICC line is obtained to complete 2 weeks course of antibiotics. Case discussed with Dr. Sanchez. Problems: Subjective 24 Hr Interval Summary Free Text/Dictation Remains afebrile. Exam/Review of Systems Vital Signs Vitals Vital Signs Date Time Temp Pulse Resp B/P Pulse Ox O2 Delivery O2 Flow Rate FiO2 12/12/16 08:10 99.3 85 18 98/59 97 12/11/16 20:00 Room Air Intake and Output 12/11/16 12/11/16 12/12/16 14:59 22:59 06:59 Intake Total 1620 ml 640 ml Balance 1620 ml 640 ml Exam Constitutional: alert, oriented Head: normocephalic Eyes: EOMI, nl conjunctiva, nl lids ENMT: nl external ears & nose, nl lips & teeth, nl nasal mucosa & septum Neck: non-tender, supple, No jvd Respiratory: clear to auscultation, normal air movement Cardiovascular: regular rate and rhythm, No murmurs/extra sounds Gastrointestinal: bowel sounds, non-tender, soft Musculoskeletal: nl extremities to inspection Extremities: normal pulses, No edema Neurological: ELECTRONIC DATA PROCESSING AUDITOR II-XII intact, nl mental status, nl speech Skin: other (Left breast erythema at 10 o'clock poistion.) Results Result Diagram: 12/12/16 0535 12/12/16 0530 Results 24 hrs Laboratory Tests Test 12/12/16 05:30 12/12/16 05:35 12/12/16 15:20 Anion Gap 18 H Blood Urea Nitrogen 13 Calcium Level 8.5 Carbon Dioxide Level 25 Chloride Level 102 Creatinine 0.78 Glucose Level 95 Potassium Level 3.9 Sodium Level 141 Basophils # 0.0 Basophils % 0.3 Eosinophils # 0.2 Eosinophils % 1.4 Hematocrit 32.6 L Hemoglobin 11.2 L Lymphocytes # 2.7 Lymphocytes % 17.9 Mean Corpuscular Hemoglobin 30.3 Mean Corpuscular Hemoglobin Concent 34.3 Mean Corpuscular Volume 88.3 Mean Platelet Volume 9.0 Monocytes # 0.7 Monocytes % 4.7 Neutrophils # 11.5 H Neutrophils % 75.7 Nucleated Red Blood Cells # 0.0 Nucleated Red Blood Cells % 0.0 Platelet Count 474 H Red Blood Count 3.70 L Red Cell Distribution Width 13.9 White Blood Count 15.2 H Activated Partial Thromboplast Time 30.8 INR International Normalized Ratio 1.00 Prothrombin Time 13.2 Prothrombin Time Ratio 1.0 Medications Medications Current Medications Ondansetron HCl (Zofran Inj) 4 mg Q6H PRN IV NAUSEA AND/OR VOMITING; Start 12/10 at 08:30 Acetaminophen (Tylenol Tab) 650 mg Q6H PRN PO PAIN LEVEL 1-3 OR FEVER; Start at 08:30 Acetaminophen/ Hydrocodone Bitart ([place] (5/325)) 1 tab Q6H PRN PO MODERATE PAIN LEVEL 4-6; Start 12/10/16 at 08:30 Morphine Sulfate (morphine) 2 mg Q4H PRN IV SEVERE PAIN LEVEL 7-10; Start at 08:30 Heparin Sodium (Porcine) (Heparin (5000 Units/0.5 ml)) 5,000 unit Q12 SC Last administered on 12/12/16 08:16; Admin Dose 5,000 UNIT; Start 12/10/16 at 09:00 Prenat Multivit/ [place]/Iron/Folic Ac ( S) 1 tab DAILY PO Last administered on 12/12/16 08:11; Admin Dose 1 TAB; Start 12/11/16 at 09:00 Diphenhydramine HCl 25 mg 25 mg Q6H PRN IV redness Last administered on 13:09; Admin Dose 25 MG; Start 12/10/16 at 19:00 Clindamycin HCl/ Dextrose (Cleocin 900 Mg/ D5W (Pmx)) 50 ml @ 50 mls/hr Q8 IVPB Last administered on 12/12/16 13:33; Admin Dose 50 MLS/HR; Start 12/10/16 at 22 :00 IV Flush (NS 10 ml) 10 ml PRN PRN IV IV PROTOCOL; Start 12/12/16 at 17:30 ABRAHAM MAGANA NP Dec 12, 2016 19:11
[2016-12-12 20:00] VITALS: BP 99/62; PULSE 92; RESP 18
[2016-12-13] MEDS: CLINDAMYCIN 900 MG/D5W (PMX) 50 ML IVPB SCH ×3 (05:42→21:32)
[2016-12-13 07:45] VITALS: BP 97/61; RESP 16
[2016-12-13] MEDS: MULTIVIT/MIN/FOLATE/IRON/PREN TAB PO SCH (08:41)
[2016-12-13] MEDS: HEPARIN 5,000 UNIT/0.5 ML SYG SC SCH ×2 (08:50→21:32)
--- NOTE | 2016-12-13 09:33 | DS ---
Date/Time of Note Date/Time of Note DATE: 12/13/16 TIME: 09:32 Discharge Summary Admission/Discharge Info Admit Date/Time Dec 10, 2016 at 04:40 Discharge Date/Time 12/13/16 Final Diagnosis FINAL DIAGNOSES: 1. Left breast abscess status post IR-guided drainage. 2. Status post sepsis secondary to left breast abscess. 3. Normocytic normochromic anemia. Patient Condition: Stable Consults CONSULTANTS: 1. Dr. Roni Ring, infectious disease. 2. Dr. Alan Childers, general surgery. 3. Kurt Arias, CLAIMS DIRECTOR for infectious disease. Hospital Course HOSPITAL COURSE: This is a 25-year-old female with past medical history of ovarian cysts who is 1 month , currently not , who presented to the emergency department with a chief complaint of left breast swelling, redness, and pain. The patient also reported subjective fevers. The patient apparently saw her primary care doctor outside and was given antibiotics with no improvement in the symptoms. In the emergency room, the patient was noticed to be febrile with temperature of 102.9 degrees Fahrenheit. The patient was also noticed to have leukocytosis. The patient underwent a breast ultrasound that showed extensive edema in the left breast at 10 o'clock position with an irregular fluid collection at this site measuring up to 2.8 x 1.7 cm. Provided the patient's history of present illness and the diagnostic findings, a clinical decision was made to admit the patient to inpatient setting to have her further evaluated. The patient was admitted to inpatient medical/surgical floor. An infectious disease consult and general surgery consult were called on this patient. The patient's blood culture remained negative. The patient's urine culture was inconclusive, although the patient had a positive urinalysis. The patient was evaluated by general surgery, and general surgery recommended an interventional radiology guided aspiration of the left breast abscess. The patient consequently underwent an ultrasound-guided aspiration of the left breast abscess that drained 4 mL of cloudy serosanguineous fluid. The patient's abscess fluid was positive for Staph aureus. Meanwhile, the patient's leukocytosis improved, and the patient had no febrile episodes since the day of admission. Hence, a clinical decision was made to put a PICC line and to discharge the patient home on IV antibiotics with home health arranged. Hence, the patient had a PICC line inserted on 12/12/2016. Home health was arranged by case management, and the patient is stable to be discharged home. The patient had no significant pain in the left breast that necessitated analgesics. Hence, the patient was not given any prescription for analgesics. The patient had a stable hospital course. The patient was cleared by consultants to be discharged home. DISCHARGE DISPOSITION AND PLAN: The patient will be discharged home today. The patient was instructed to take a regular diet as tolerated. The patient was instructed to complete the course of IV antibiotics. The patient was instructed on PICC line care. The patient was instructed to resume activities as tolerated. The patient was instructed to go to the nearest emergency room if she has worsening symptoms of left breast redness, drainage, persistent fevers, or any other unusual signs or symptoms. The patient verbalized understanding of her discharge instructions. CONDITION AT DISCHARGE: Stable. DISCHARGE MEDICATIONS: Please see d/c med list Home Meds Discontinued Reported Medications Multivit/Min/Fol Ac/Iron/Pren* ( S*) 1 Tab Tab, 1 TAB PO DAILY, TAB 11/10/16 Pending Labs Laboratory Tests Test 12/12/16 15:20 Activated Partial Thromboplast Time 30.8Sec (25.0-35.0) INR International Normalized Ratio 1.00 Prothrombin Time 13.2Sec (12.2-14.2) Prothrombin Time Ratio 1.0 YOKO TOMLINSON Dec 13, 2016 09:33 Prothrombin Time Ratio 1.0 YOKO TOMLINSON Dec 13, 2016 09:33
--- NOTE | 2016-12-13 13:01 | CONS ---
Date/Time of Note Date/Time of Note DATE: 12/13/16 TIME: 12:57 Assessment/Plan Assessment/Plan Chief Complaint/Hosp Course SUBJECTIVE: Patient is alert, looks comfortable, wants to go home. No fevers. MICROBIOLOGY: This patient had a left breast fluid aspiration that is growing Staphylococcus aureus preliminary. ANTIMICROBIALS: The patient is on IV clindamycin. PHYSICAL EXAMINATION: GENERAL: A well-developed young woman who is alert, in no distress. HEENT: Head atraumatic, normocephalic. Sclerae anicteric. Buccal mucosa pink. NECK: Supple, trachea midline. CHEST: Rise symmetrical. Breath sounds clear. HEART: S1, S2. ABDOMEN: Soft. Bowel tones present. EXTREMITIES: Without cyanosis or edema. SKIN: With left breast resolving erythema, but still with area of hardness on palpation and some pain. ASSESSMENT: 1. Systemic inflammatory response syndrome. 2. Left breast cellulitis with abscess, status post aspiration of 4 mL only with culture preliminary growing Staphylococcus aureus. PLAN: The patient remains stable. Left breast with decreased erythema but swelling and firmness persists, will continue IV abx, apply warm, moist compresses to the area, anticipate dc on IV Rocephin for 2 weeks. S/p PICC DW pt/RN/CM Problems: Consultation Date/Type/Reason Admit Date/Time Dec 10, 2016 at 04:40 Initial Consult Date Type of Consultation: id Exam/Review of Systems Vital Signs Vitals Vital Signs Date Time Temp Pulse Resp B/P Pulse Ox O2 Delivery O2 Flow Rate FiO2 12/13/16 07:45 98.6 66 16 97/61 98 12/12/16 20:00 Room Air Intake and Output 12/12/16 12/12/16 12/13/16 15:00 23:00 07:00 Intake Total 2300 ml 770 ml Balance 2300 ml 770 ml Results Result Diagram: 12/12/16 0535 12/12/16 0530 Results 24 hrs Laboratory Tests Test 12/12/16 15:20 Activated Partial Thromboplast Time 30.8 INR International Normalized Ratio 1.00 Prothrombin Time 13.2 Prothrombin Time Ratio 1.0 Medications Medications Current Medications Ondansetron HCl (Zofran Inj) 4 mg Q6H PRN IV NAUSEA AND/OR VOMITING; Start 12/10 at 08:30 Acetaminophen (Tylenol Tab) 650 mg Q6H PRN PO PAIN LEVEL 1-3 OR FEVER; Start at 08:30 Acetaminophen/ Hydrocodone Bitart ([place] (5/325)) 1 tab Q6H PRN PO MODERATE PAIN LEVEL 4-6; Start 12/10/16 at 08:30 Morphine Sulfate (morphine) 2 mg Q4H PRN IV SEVERE PAIN LEVEL 7-10; Start at 08:30 Heparin Sodium (Porcine) (Heparin (5000 Units/0.5 ml)) 5,000 unit Q12 SC Last administered on 12/13/16 08:50; Admin Dose 5,000 UNIT; Start 12/10/16 at 09:00 Prenat Multivit/ [place]/Iron/Folic Ac ( S) 1 tab DAILY PO Last administered on 12/13/16 08:41; Admin Dose 1 TAB; Start 12/11/16 at 09:00 Diphenhydramine HCl 25 mg 25 mg Q6H PRN IV redness Last administered on 13:09; Admin Dose 25 MG; Start 12/10/16 at 19:00 Clindamycin HCl/ Dextrose (Cleocin 900 Mg/ D5W (Pmx)) 50 ml @ 50 mls/hr Q8 IVPB Last administered on 12/13/16 05:42; Admin Dose 50 MLS/HR; Start 12/10/16 at 22 :00 IV Flush (NS 10 ml) 10 ml PRN PRN IV IV PROTOCOL; Start 12/12/16 at 17:30 JOSE TRIMBLE NP Dec 13, 2016 13:01
[2016-12-13 19:40] VITALS: BP 106/67; PULSE 94; RESP 16
[2016-12-14] MEDS: CLINDAMYCIN 900 MG/D5W (PMX) 50 ML IVPB SCH ×3 (05:30→21:40)
[2016-12-14 08:00] VITALS: BP 101/67; PULSE 95; RESP 16
[2016-12-14] MEDS: HEPARIN 5,000 UNIT/0.5 ML SYG SC SCH ×2 (08:19→21:59)
[2016-12-14] MEDS: MULTIVIT/MIN/FOLATE/IRON/PREN TAB PO SCH (08:19)
--- NOTE | 2016-12-14 18:44 | CONS ---
Date/Time of Note Date/Time of Note DATE: 12/14/16 TIME: 18:41 Assessment/Plan Assessment/Plan Chief Complaint/Hosp Course SUBJECTIVE: Patient is alert, looks comfortable, wants to go home. No fevers. MICROBIOLOGY: left breast fluid aspiration that is growing Staphylococcus aureus preliminary. ANTIMICROBIALS: The patient is on IV clindamycin. PHYSICAL EXAMINATION: GENERAL: A well-developed young woman who is alert, in no distress. HEENT: Head atraumatic, normocephalic. Sclerae anicteric. Buccal mucosa pink. NECK: Supple, trachea midline. CHEST: Rise symmetrical. Breath sounds clear. HEART: S1, S2. ABDOMEN: Soft. Bowel tones present. EXTREMITIES: Without cyanosis or edema. SKIN: Left breast with an area of induration. ASSESSMENT: 1. Systemic inflammatory response syndrome. 2. Left breast cellulitis with abscess, status post aspiration of 4 mL only with culture preliminary growing Staphylococcus aureus. PLAN: The patient remains stable. Left breast with decreased erythema but still indurated, continue IV abx, warm, moist compresses to the area, consider surgical re-evaluation, anticipate dc on IV Rocephin. S/p PICC DW pt BRIELLE Marx Problems: Consultation Date/Type/Reason Admit Date/Time Dec 10, 2016 at 04:40 Type of Consultation: id Exam/Review of Systems Vital Signs Vitals Vital Signs Date Time Temp Pulse Resp B/P Pulse Ox O2 Delivery O2 Flow Rate FiO2 12/14/16 08:00 98.1 95 16 101/67 98 Room Air Intake and Output 12/13/16 12/13/16 12/14/16 15:00 23:00 07:00 Intake Total 1080 ml 720 ml Balance 1080 ml 720 ml Results Result Diagram: 12/12/16 0535 12/12/16 0530 Medications Medications Current Medications Ondansetron HCl (Zofran Inj) 4 mg Q6H PRN IV NAUSEA AND/OR VOMITING; Start 12/10 at 08:30 Acetaminophen (Tylenol Tab) 650 mg Q6H PRN PO PAIN LEVEL 1-3 OR FEVER; Start at 08:30 Acetaminophen/ Hydrocodone Bitart ([place] (5/325)) 1 tab Q6H PRN PO MODERATE PAIN LEVEL 4-6; Start 12/10/16 at 08:30 Morphine Sulfate (morphine) 2 mg Q4H PRN IV SEVERE PAIN LEVEL 7-10; Start at 08:30 Heparin Sodium (Porcine) (Heparin (5000 Units/0.5 ml)) 5,000 unit Q12 SC Last administered on 12/13/16 21:32; Admin Dose 5,000 UNIT; Start 12/10/16 at 09:00 Prenat Multivit/ [place]/Iron/Folic Ac ( S) 1 tab DAILY PO Last administered on 12/14/16 08:19; Admin Dose 1 TAB; Start 12/11/16 at 09:00 Diphenhydramine HCl 25 mg 25 mg Q6H PRN IV redness Last administered on 13:09; Admin Dose 25 MG; Start 12/10/16 at 19:00 Clindamycin HCl/ Dextrose (Cleocin 900 Mg/ D5W (Pmx)) 50 ml @ 50 mls/hr Q8 IVPB Last administered on 12/14/16 14:53; Admin Dose 50 MLS/HR; Start 12/10/16 at 22 :00 IV Flush (NS 10 ml) 10 ml PRN PRN IV IV PROTOCOL Last administered on 12/14/16 05:30; Admin Dose 10 ML; Start 12/12/16 at 17:30 JOSE TRIMBLE NP Dec 14, 2016 18:44
--- NOTE | 2016-12-14 19:03 | PN ---
Date/Time of Note Date/Time of Note DATE: 12/14/16 TIME: 18:58 Assessment/Plan VTE Prophylaxis VTE Prophylaxis Intervention: SCD's Lines/Catheters IV Catheter Type (from Nrsg): PICC Line Central line still needed: Yes Urinary Cath still in place: No Assessment/Plan Assessment/Plan IMPRESSION: 1. Sepsis secondary to left breast cellulitis/mastitis. Improving 2. Left breast cellulitis/mastitis. ultrasound that was done previously demonstrated possible early abscess and IR drainage was done 12/11/16 Area looks like it needs repeat drainage, so will reconsult general surgery for probable open drainage. 3. Normocytic anemia. Continue to monitor 4. History of ovarian cyst. 5. One month . Continue multivitamin Dispo: Case management still trying to arrange with insurance to approve home IV abx. Subjective 24 Hr Interval Summary Free Text/Dictation Patient seen no new issues unhappy about not going home spoke with ID and surgery Exam/Review of Systems Vital Signs Vitals Vital Signs Date Time Temp Pulse Resp B/P Pulse Ox O2 Delivery O2 Flow Rate FiO2 12/14/16 08:00 98.1 95 16 101/67 98 Room Air Intake and Output 12/13/16 12/13/16 12/14/16 15:00 23:00 07:00 Intake Total 1080 ml 720 ml Balance 1080 ml 720 ml Exam Constitutional: alert, oriented Eyes: PERRL ENMT: mucosa pink and moist Respiratory: clear to auscultation Cardiovascular: regular rate and rhythm Musculoskeletal: nl extremities to inspection Skin: other (L breast with loculated erythematous swelling, not fluctuant but collected and might be amenable to drainage) Results Result Diagram: 12/12/16 0535 12/12/16 0530 Medications Medications Current Medications Ondansetron HCl (Zofran Inj) 4 mg Q6H PRN IV NAUSEA AND/OR VOMITING; Start 12/10 at 08:30 Acetaminophen (Tylenol Tab) 650 mg Q6H PRN PO PAIN LEVEL 1-3 OR FEVER; Start at 08:30 Acetaminophen/ Hydrocodone Bitart ([place] (5/325)) 1 tab Q6H PRN PO MODERATE PAIN LEVEL 4-6; Start 12/10/16 at 08:30 Morphine Sulfate (morphine) 2 mg Q4H PRN IV SEVERE PAIN LEVEL 7-10; Start at 08:30 Heparin Sodium (Porcine) (Heparin (5000 Units/0.5 ml)) 5,000 unit Q12 SC Last administered on 12/13/16 21:32; Admin Dose 5,000 UNIT; Start 12/10/16 at 09:00 Prenat Multivit/ Fire Information Officer/Iron/Folic Ac ( S) 1 tab DAILY PO Last administered on 12/14/16 08:19; Admin Dose 1 TAB; Start 12/11/16 at 09:00 Diphenhydramine HCl 25 mg 25 mg Q6H PRN IV redness Last administered on 13:09; Admin Dose 25 MG; Start 12/10/16 at 19:00 Clindamycin HCl/ Dextrose (Cleocin 900 Mg/ D5W (Pmx)) 50 ml @ 50 mls/hr Q8 IVPB Last administered on 12/14/16 14:53; Admin Dose 50 MLS/HR; Start 12/10/16 at 22 :00 IV Flush (NS 10 ml) 10 ml PRN PRN IV IV PROTOCOL Last administered on 12/14/16 05:30; Admin Dose 10 ML; Start 12/12/16 at 17:30 YOKO TOMLINSON Dec 14, 2016 19:02
--- NOTE | 2016-12-14 19:05 | QN ---
Documentation Comment Spoke with Dr Childers, he recommends repeat USS and IR drainage again. However after speaking with ID, they recommend asking Dr Monterroso / Ciera to take a look as they do more of breast surgeries. I spoke with Dr Vang, he will see patient tomorrow. YOKO TOMLINSON. Dec 14, 2016 19:04
[2016-12-14 19:45] VITALS: BP 106/65; PULSE 104; RESP 16
[2016-12-15] MEDS: CLINDAMYCIN 900 MG/D5W (PMX) 50 ML IVPB SCH ×2 (05:40→14:03)
[2016-12-15 08:06] VITALS: BP 101/61; RESP 19
[2016-12-15] MEDS: MULTIVIT/MIN/FOLATE/IRON/PREN TAB PO SCH (09:19)
[2016-12-15] MEDS: HEPARIN 5,000 UNIT/0.5 ML SYG SC SCH (09:36)
[2016-12-15 11:50] LABS: BASOPHILS % 0.3 % (0.0-2.0); EOSINOPHILS # 0.2 10^3/ul (0.0-0.5); EOSINOPHILS % 1.3 % (0.0-7.0); HEMOGLOBIN 11.4 g/dl (12.0-16.0); LYMPHOCYTES # 2.6 10^3/ul (0.8-2.9); LYMPHOCYTES % 14.7 % (15.0-51.0); MEAN CORPUSCULAR HEMOGLOBIN 29.4 pg (29.0-33.0); MEAN CORPUSCULAR HGB CONC 33.5 g/dl (32.0-37.0); MEAN CORPUSCULAR VOLUME 87.7 fl (82.0-101.0); MEAN PLATELET VOLUME 8.1 fl (7.4-10.4); MONOCYTE # 0.8 10^3/ul (0.3-0.9); MONOCYTES % 4.4 % (0.0-11.0); NEUTROPHIL # 14.2 10^3/ul (1.6-7.5); NEUTROPHILS % 79.3 % (39.0-77.0); PLATELET COUNT 500 10^3/UL (140-440); RED BLOOD COUNT 3.87 10^6/ul (4.20-5.40); RED CELL DISTRIBUTION WIDTH 14.1 % (11.5-14.5); UNCORRECTED WBC 17.9 10^3/ul (4.8-10.8); WHITE BLOOD COUNT 17.9 10^3/ul (4.8-10.8)
[2016-12-15 12:04] LABS: CONDITION 1
--- NOTE | 2016-12-15 13:57 | RADRPT ---
PROCEDURE: Bilateral breast ultrasound. CLINICAL INDICATION: Breast pain and tenderness, fibrocystic disease of breast TECHNIQUE: Bilateral whole breast, 4 quadrant and retroareolar, and axillary sonography was perfor med. COMPARISON: December 10, 2016 FINDINGS: No solid or suspicious masses. No areas of architectural distortion. No malignant adenopathy. No dominant cysts are present. There is a persistent, diffuse, moderate, left breast mastitis. Overall, there is no interval change. No abscess, hematoma, or fluid collection. The right breast is negative. IMPRESSION: No sonographic evidence of malignancy in either breast. Persistent, diffuse, moderate, left breast m astitis. Overall, no interval change. ACR BIRADS 2: BENIGN. RPTAT: EE .Stephanie Bennett MD, MD Date Time Electronically viewed and signed by .Stephanie Bennett MD, MD on 12/15/2016 13:57 .F/
--- NOTE | 2016-12-15 15:03 | PN ---
Date/Time of Note Date/Time of Note DATE: 12/15/16 TIME: 15:01 Assessment/Plan VTE Prophylaxis VTE Prophylaxis Intervention: SCD's Lines/Catheters IV Catheter Type (from Nrsg): PICC Line Central line still needed: Yes Urinary Cath still in place: No Assessment/Plan Assessment/Plan 1. Left mastitis, no abscess on us, rocephin 2. UTI, rocephin Subjective 24 Hr Interval Summary Free Text/Dictation left breast pain, afebrile. no dysuria Exam/Review of Systems Vital Signs Vitals Vital Signs Date Time Temp Pulse Resp B/P Pulse Ox O2 Delivery O2 Flow Rate FiO2 12/15/16 08:06 98.1 82 19 101/61 98 12/14/16 19:45 Room Air Intake and Output 12/14/16 12/14/16 12/15/16 15:00 23:00 07:00 Intake Total 100 ml 550 ml Balance 100 ml 550 ml Exam Constitutional: alert, oriented, well developed Psych: nl mood/affect, no complaints Head: atraumatic, normocephalic Eyes: EOMI, PERRL, nl conjunctiva, nl lids ENMT: nl external ears & nose, nl lips & teeth, nl nasal mucosa & septum Neck: non-tender, supple Respiratory: clear to auscultation, normal air movement, No congested cough, No crackles/rales, No diminished breath sounds, No intercostal retraction, No labored breathing, No respirations, No tactile fremitus, No wheezing Cardiovascular: nl pulses, regular rate and rhythm, No S3, No S4, No bruits, No diastolic murmur, No edema, No gallop, No irregular rhythm, No jugular venous distention (JVD), No murmurs/extra sounds, No other, No rub, No systolic murmur Gastrointestinal: nl liver, spleen, non-tender, soft, No ascites, No bowel sounds, No distended, No firm, No hepatomegaly, No mass , No other, No rebound or guarding, No splenomegaly, No surgical scars, No tender Musculoskeletal: nl extremities to inspection Extremities: normal pulses, No calf tenderness, No clubbing, No cyanosis, No edema, No other, No palpable cord, No pitting pedal edema, No tenderness Neurological: TIMBER FRAMER II-XII intact, nl mental status, nl speech, nl strength Skin: other (left breath with hard induation, redness, warm, and tender) Results Result Diagram: 12/15/16 1125 12/12/16 0530 Results 24 hrs Laboratory Tests Test 12/15/16 11:25 Basophils # 0.0 Basophils % 0.3 Eosinophils # 0.2 Eosinophils % 1.3 Hematocrit 34.0 L Hemoglobin 11.4 L Lymphocytes # 2.6 Lymphocytes % 14.7 L Mean Corpuscular Hemoglobin 29.4 Mean Corpuscular Hemoglobin Concent 33.5 Mean Corpuscular Volume 87.7 Mean Platelet Volume 8.1 Monocytes # 0.8 Monocytes % 4.4 Neutrophils # 14.2 H Neutrophils % 79.3 H Nucleated Red Blood Cells # 0.0 Nucleated Red Blood Cells % 0.0 Platelet Count 500 H Red Blood Count 3.87 L Red Cell Distribution Width 14.1 White Blood Count 17.9 H Medications Medications Current Medications Ondansetron HCl (Zofran Inj) 4 mg Q6H PRN IV NAUSEA AND/OR VOMITING; Start 12/10 at 08:30 Acetaminophen (Tylenol Tab) 650 mg Q6H PRN PO PAIN LEVEL 1-3 OR FEVER; Start at 08:30 Acetaminophen/ Hydrocodone Bitart ([place] (5/325)) 1 tab Q6H PRN PO MODERATE PAIN LEVEL 4-6; Start 12/10/16 at 08:30 Morphine Sulfate (morphine) 2 mg Q4H PRN IV SEVERE PAIN LEVEL 7-10; Start at 08:30 Heparin Sodium (Porcine) (Heparin (5000 Units/0.5 ml)) 5,000 unit Q12 SC Last administered on 12/15/16 09:36; Admin Dose 5,000 UNIT; Start 12/10/16 at 09:00; Status Future Hold Prenat Multivit/ [place]/Iron/Folic Ac ( S) 1 tab DAILY PO Last administered on 12/15/16 09:19; Admin Dose 1 TAB; Start 12/11/16 at 09:00 Diphenhydramine HCl 25 mg 25 mg Q6H PRN IV redness Last administered on 13:09; Admin Dose 25 MG; Start 12/10/16 at 19:00 Clindamycin HCl/ Dextrose (Cleocin 900 Mg/ D5W (Pmx)) 50 ml @ 50 mls/hr Q8 IVPB Last administered on 12/15/16 14:03; Admin Dose 50 MLS/HR; Start 12/10/16 at 22 :00 IV Flush (NS 10 ml) 10 ml PRN PRN IV IV PROTOCOL Last administered on 12/14/16 05:30; Admin Dose 10 ML; Start 12/12/16 at 17:30 AUGUSTIN GARNER MD Dec 15, 2016 15:03
--- NOTE | 2016-12-15 16:06 | CONS ---
DATE OF ADMISSION: 12/10/2016 DATE OF CONSULTATION: 12/15/2016 TYPE OF CONSULTATION: Surgical. REQUESTING PHYSICIAN: Dr. Marx REASON FOR CONSULTATION: Left breast inflammation and possible abscess for evaluation for possible drainage. Thank you, Dr. Marx for the consultation. HISTORY OF PRESENT ILLNESS: This is a 25-year-old female, 4 weeks . About 3 weeks ago, s he developed some gradual swelling, pain and tenderness of the left breast area. She was referred t o her family physician and advised to have a cold pack tight dressing. She did not work for 2 weeks and eventually came to emergency room at [facility] on 12/09/2016, 10 p.m. The p atient was evaluated and was found to have a leukocyte count of 20,200 with 81% segmented and breast ultrasound was performed at that time which revealed extensive edema in the left breast 10 o'clock position in an irregular fluid collection at the site measuring up to 2.8 x 1.7 cm. This may be due to an early abscess formation. So the patient was started on antibiotics, clindamycin because KATHRINE RGIC TO VANCOMYCIN. The next day, radiology requested to perform drainage. The radiologist did an ultrasound guided needle aspiration per report for removal. Fluid was collected and fluid was sent for pathologic evaluation and culture and revealed Staphylococcus aureus. PHYSICAL EXAMINATION: VITAL SIGNS: Today 12/15/2016, the patient's vital signs as follows: Temperature 98.1, heart rate 82, respirations 19, blood pressure 101/61, saturation 98% on room air. I should mention that on ad mission, the temperature was 102 and yesterday the maximum temperature was 99.8. GENERAL: Patient is alert and oriented x3, sitting chair, no acute distress. HEENT: Within normal limits. HEART: Regular rhythm, no murmurs. LUNGS: Clear to auscultation. Chest wall: Right breast is within normal limits. On the left andrea st, there is an area of redness, erythema and induration at 9, 10 and 11 o'clock position. Slight azar bcutaneous white spots can be seen which probably is pus, but this area is a little bit tender but d efinitely there is deep induration extending to the surface of this area. I cannot feel fluctuation . No discharge from the mid pelvis. No axillary lymph nodes. ABDOMEN: Soft. EXTREMITIES: Legs, negative. BREASTS: I requested an ultrasound repeat which was done an hour ago and it was read as follows: F indings of no solid or suspicious masses. No areas of architectural distortion. No malignant adeno liza, no dominant cysts present. There is a persistent diffuse moderate left breast mastitis. Ove rall, there is no interval change. No abscess, hematoma or fluid collection. The right breast is n egative. Impression: No sonographic evidence of malignancy in either breast consistent with diffus e moderate left breast with mastitis, no interval change. This was read by Dr. Stephanie Bennett. PAST MEDICAL HISTORY: The patient is status post delivery 4 weeks ago. ALLERGIES: UNKNOWN EXCEPT FOR POSSIBILITY OF VANCOMYCIN. MEDICATIONS AT HOME: None. IMPRESSION: Left breast mastitis and cellulitis. The patient seen about 3 weeks ago, but patient h as responded to some extent to antibiotic. Namely, the WBC has dropped to 17,900 today with 79% seg mented and leukocyte count 20,200 and temperature is afebrile today. SUGGESTION: I would recommend that the patient be started on another antibiotic pending further dec ision of the infectious disease. I think one long antibiotic is probably enough for this patient an d continue IV antibiotics and observe for possible deprecation of the induration and possible format ion of the abscess. I do not recommend p.o. antibiotics. I think this patient should get IV antibi otics as much as possible for resolution of the problem and these should be reexamined and evaluated by me or by any other surgeon within 3-4 days. Dictated By: PRATIMA FORD/MAXINE Conf#: [id number] DID#: [id number]
--- NOTE | 2016-12-15 16:35 | CONS ---
Date/Time of Note Date/Time of Note DATE: 12/15/16 TIME: 16:34 Assessment/Plan Assessment/Plan Chief Complaint/Hosp Course SUBJECTIVE: Patient is alert, looks comfortable, wants to go home. No fevers. MICROBIOLOGY: left breast fluid aspiration that is growing Staphylococcus aureus preliminary. ANTIMICROBIALS: The patient is on IV clindamycin. PHYSICAL EXAMINATION: GENERAL: A well-developed young woman who is alert, in no distress. HEENT: Head atraumatic, normocephalic. Sclerae anicteric. Buccal mucosa pink. NECK: Supple, trachea midline. CHEST: Rise symmetrical. Breath sounds clear. HEART: S1, S2. ABDOMEN: Soft. Bowel tones present. EXTREMITIES: Without cyanosis or edema. SKIN: Left breast with an area of induration. ASSESSMENT: 1. Systemic inflammatory response syndrome. 2. Left breast cellulitis with abscess, status post aspiration of 4 mL only with culture preliminary growing Staphylococcus aureus. PLAN: The patient remains stable. Continue abx, pending repeat L breast US, f/ u surgical rec-s DW Dr Vang Problems: Consultation Date/Type/Reason Admit Date/Time Dec 10, 2016 at 04:40 Type of Consultation: id Exam/Review of Systems Vital Signs Vitals Vital Signs Date Time Temp Pulse Resp B/P Pulse Ox O2 Delivery O2 Flow Rate FiO2 12/15/16 08:06 98.1 82 19 101/61 98 12/14/16 19:45 Room Air Intake and Output 12/14/16 12/14/16 12/15/16 15:00 23:00 07:00 Intake Total 100 ml 550 ml Balance 100 ml 550 ml Results Result Diagram: 12/15/16 1125 12/12/16 0530 Results 24 hrs Laboratory Tests Test 12/15/16 11:25 Basophils # 0.0 Basophils % 0.3 Eosinophils # 0.2 Eosinophils % 1.3 Hematocrit 34.0 L Hemoglobin 11.4 L Lymphocytes # 2.6 Lymphocytes % 14.7 L Mean Corpuscular Hemoglobin 29.4 Mean Corpuscular Hemoglobin Concent 33.5 Mean Corpuscular Volume 87.7 Mean Platelet Volume 8.1 Monocytes # 0.8 Monocytes % 4.4 Neutrophils # 14.2 H Neutrophils % 79.3 H Nucleated Red Blood Cells # 0.0 Nucleated Red Blood Cells % 0.0 Platelet Count 500 H Red Blood Count 3.87 L Red Cell Distribution Width 14.1 White Blood Count 17.9 H Medications Medications Current Medications Ondansetron HCl (Zofran Inj) 4 mg Q6H PRN IV NAUSEA AND/OR VOMITING; Start 12/10 at 08:30 Acetaminophen (Tylenol Tab) 650 mg Q6H PRN PO PAIN LEVEL 1-3 OR FEVER; Start at 08:30 Acetaminophen/ Hydrocodone Bitart ([place] (5/325)) 1 tab Q6H PRN PO MODERATE PAIN LEVEL 4-6; Start 12/10/16 at 08:30 Morphine Sulfate (morphine) 2 mg Q4H PRN IV SEVERE PAIN LEVEL 7-10; Start at 08:30 Heparin Sodium (Porcine) (Heparin (5000 Units/0.5 ml)) 5,000 unit Q12 SC Last administered on 12/15/16 09:36; Admin Dose 5,000 UNIT; Start 12/10/16 at 09:00; Status Future Hold Prenat Multivit/ Barrel Lathe Operator/Iron/Folic Ac ( S) 1 tab DAILY PO Last administered on 12/15/16 09:19; Admin Dose 1 TAB; Start 12/11/16 at 09:00 Diphenhydramine HCl (Benadryl) 25 mg Q6H PRN IV redness Last administered on 13:09; Admin Dose 25 MG; Start 12/10/16 at 19:00 IV Flush 10 ml 10 ml PRN PRN IV IV PROTOCOL Last administered on 12/14/16 05:30 ; Admin Dose 10 ML; Start 12/12/16 at 17:30 Ceftriaxone Sodium (Rocephin) 50 ml @ 100 mls/hr Q24H IVPB ; Start 12/15/16 at 16:30 JOSE TRIMBLE NP Dec 15, 2016 16:35
[2016-12-15] MEDS: CEFTRIAXONE 2 GM/50 ML (PMX) 50 ML IVPB SCH (18:11)
[2016-12-15 19:30] VITALS: BP 102/69; PULSE 98; RESP 16
[2016-12-16 05:51] LABS: BASOPHIL # 0.1 10^3/ul (0.0-0.1); BASOPHILS % 0.4 % (0.0-2.0); EOSINOPHILS # 0.3 10^3/ul (0.0-0.5); EOSINOPHILS % 1.8 % (0.0-7.0); HEMATOCRIT 32.7 % (37.0-47.0); HEMOGLOBIN 11.1 g/dl (12.0-16.0); LYMPHOCYTES # 2.8 10^3/ul (0.8-2.9); LYMPHOCYTES % 16.5 % (15.0-51.0); MEAN CORPUSCULAR HEMOGLOBIN 29.9 pg (29.0-33.0); MEAN CORPUSCULAR HGB CONC 33.9 g/dl (32.0-37.0); MEAN CORPUSCULAR VOLUME 88.1 fl (82.0-101.0); MONOCYTE # 0.8 10^3/ul (0.3-0.9); MONOCYTES % 4.7 % (0.0-11.0); NEUTROPHILS % 76.6 % (39.0-77.0); PLATELET COUNT 450 10^3/UL (140-440); RED BLOOD COUNT 3.71 10^6/ul (4.20-5.40); RED CELL DISTRIBUTION WIDTH 13.6 % (11.5-14.5)
[2016-12-16 06:55] LABS: CONDITION 1
[2016-12-16 08:00] VITALS: BP 106/69; PULSE 86; RESP 16
[2016-12-16] MEDS: MULTIVIT/MIN/FOLATE/IRON/PREN TAB PO SCH (09:12)
[2016-12-16] MEDS ORDERED: CEFT2PIG2 IVPB (13:08)
--- NOTE | 2016-12-16 13:14 | DS ---
Date/Time of Note Date/Time of Note DATE: 12/16/16 TIME: 13:10 Discharge Summary Admission/Discharge Info Admit Date/Time Dec 10, 2016 at 04:40 Discharge Date/Time Final Diagnosis 1. Left mastitis, no abscess on us, rocephin for two weeks 2. UTI, rocephin Patient Condition: Stable Hospital Course the patient is a 25-year-old female with a history of ovarian cysts, who is one month , who presented to the emergency department with the above stated chief complaint. She states that the redness, swelling and pain on her left breast have been progressively getting worse and was associated with subjective fever. She is 1 month , but she states that she has not been breast feeding. As per the patient, the patient was actually seen by the primary care doctor and was given antibiotics, but she stated it did not help, and that is one of the reasons she came to the ER. When she presented to the ER, she was febrile with a temperature of 102.9, tachycardic with heart rate of 119 and she had a white count also at 20,000. The chest x-ray shows that possible infiltrates and ultrasound of the breast did not show any abscess. She was started on antibiotic and admitted for further evaluation. Physical exam with redness, swelling, and warm with tenderness on left breast. US does show evidence of abscess. Patient is doing better on iv antibiotics. She will be discharged on two weeks iv rocephin and follow up with PCP. Home Meds Active Scripts Ceftriaxone Sod* (Rocephin* 2GM/D5W (PMX)) 2 Gm/50 Ml Iv.soln., 2 GM IVPB Q24H for 14 Days, EA Prov:AUGUSTIN GARNER MD 12/16/16 Discontinued Reported Medications Multivit/Min/Fol Ac/Iron/Pren* ( S*) 1 Tab Tab, 1 TAB PO DAILY, TAB 11/10/16 Follow-up Plan home health for two weeks iv rocephin through PICC line. Follow up with PCP in 1-2 weeks Pending Labs Laboratory Tests Test 12/16/16 05:20 Basophils # 0.110^3/ul (0.0-0.1) Basophils % 0.4% (0.0-2.0) Eosinophils # 0.310^3/ul (0.0-0.5) Eosinophils % 1.8% (0.0-7.0) Hematocrit 32.7% (37.0-47.0) Hemoglobin 11.1g/dl (12.0-16.0) Lymphocytes # 2.810^3/ul (0.8-2.9) Lymphocytes % 16.5% (15.0-51.0) Mean Corpuscular Hemoglobin 29.9pg (29.0-33.0) Mean Corpuscular Hemoglobin Concent 33.9g/dl (32.0-37.0) Mean Corpuscular Volume 88.1fl (82.0-101.0) Mean Platelet Volume 8.0fl (7.4-10.4) Monocytes # 0.810^3/ul (0.3-0.9) Monocytes % 4.7% (0.0-11.0) Neutrophils # 13.010^3/ul (1.6-7.5) Neutrophils % 76.6% (39.0-77.0) Nucleated Red Blood Cells # 0.010^3/ul (0.0-0.0) Nucleated Red Blood Cells % 0.0/100WBC (0.0-0.0) Platelet Count 87273^3/UL (140-440) Red Blood Count 3.7110^6/ul (4.20-5.40) Red Cell Distribution Width 13.6% (11.5-14.5) White Blood Count 17.010^3/ul (4.8-10.8) AUGUSTIN GARNER MD Dec 16, 2016 13:14
--- NOTE | 2016-12-16 13:36 | CONS ---
Date/Time of Note Date/Time of Note DATE: 12/16/16 TIME: 13:35 Assessment/Plan Assessment/Plan Chief Complaint/Hosp Course SUBJECTIVE: Patient is alert, looks comfortable, wants to go home. No fevers. MICROBIOLOGY: left breast fluid aspiration that is growing Staphylococcus aureus preliminary. ANTIMICROBIALS: Rocephin. PHYSICAL EXAMINATION: GENERAL: A well-developed young woman who is alert, in no distress. HEENT: Head atraumatic, normocephalic. Sclerae anicteric. Buccal mucosa pink. NECK: Supple, trachea midline. CHEST: Rise symmetrical. Breath sounds clear. HEART: S1, S2. ABDOMEN: Soft. Bowel tones present. EXTREMITIES: Without cyanosis or edema. SKIN: Left breast with decreased swelling and erythema. ASSESSMENT: 1. Systemic inflammatory response syndrome. 2. Left breast cellulitis with abscess, status post aspiration of 4 mL with culture preliminary growing Staphylococcus aureus. PLAN: The patient remains stable. Improving on IV abx, surgical rec-s noted==> dc planning on IV Rocephin for 2 weeks BRIELLE Bolden Problems: Consultation Date/Type/Reason Admit Date/Time Dec 10, 2016 at 04:40 Type of Consultation: id Exam/Review of Systems Vital Signs Vitals Vital Signs Date Time Temp Pulse Resp B/P Pulse Ox O2 Delivery O2 Flow Rate FiO2 12/16/16 08:00 98.0 86 16 106/69 100 Room Air Intake and Output 12/15/16 12/15/16 12/16/16 15:00 23:00 07:00 Intake Total 50 ml 1530 ml 600 ml Balance 50 ml 1530 ml 600 ml Results Result Diagram: 12/16/16 0520 12/12/16 0530 Results 24 hrs Laboratory Tests Test 12/16/16 05:20 Basophils # 0.1 Basophils % 0.4 Eosinophils # 0.3 Eosinophils % 1.8 Hematocrit 32.7 L Hemoglobin 11.1 L Lymphocytes # 2.8 Lymphocytes % 16.5 Mean Corpuscular Hemoglobin 29.9 Mean Corpuscular Hemoglobin Concent 33.9 Mean Corpuscular Volume 88.1 Mean Platelet Volume 8.0 Monocytes # 0.8 Monocytes % 4.7 Neutrophils # 13.0 H Neutrophils % 76.6 Nucleated Red Blood Cells # 0.0 Nucleated Red Blood Cells % 0.0 Platelet Count 450 H Red Blood Count 3.71 L Red Cell Distribution Width 13.6 White Blood Count 17.0 H Medications Medications Current Medications Ondansetron HCl (Zofran Inj) 4 mg Q6H PRN IV NAUSEA AND/OR VOMITING; Start 12/10 at 08:30 Acetaminophen (Tylenol Tab) 650 mg Q6H PRN PO PAIN LEVEL 1-3 OR FEVER; Start at 08:30 Acetaminophen/ Hydrocodone Bitart ([place] (5/325)) 1 tab Q6H PRN PO MODERATE PAIN LEVEL 4-6; Start 12/10/16 at 08:30 Morphine Sulfate (morphine) 2 mg Q4H PRN IV SEVERE PAIN LEVEL 7-10; Start at 08:30 Heparin Sodium (Porcine) (Heparin (5000 Units/0.5 ml)) 5,000 unit Q12 SC Last administered on 12/15/16 09:36; Admin Dose 5,000 UNIT; Start 12/10/16 at 09:00; Status Future Hold Prenat Multivit/ [place]/Iron/Folic Ac ( S) 1 tab DAILY PO Last administered on 12/16/16 09:12; Admin Dose 1 TAB; Start 12/11/16 at 09:00 Diphenhydramine HCl (Benadryl) 25 mg Q6H PRN IV redness Last administered on 13:09; Admin Dose 25 MG; Start 12/10/16 at 19:00 IV Flush 10 ml 10 ml PRN PRN IV IV PROTOCOL Last administered on 12/14/16 05:30 ; Admin Dose 10 ML; Start 12/12/16 at 17:30 Ceftriaxone Sodium (Rocephin) 50 ml @ 100 mls/hr Q24H IVPB Last administered on 12/15/16 18:11; Admin Dose 100 MLS/HR; Start 12/15/16 at 16:30 JOSE TRIMBLE NP Dec 16, 2016 13:36
--- NOTE | 2016-12-16 15:22 | PN ---
DATE: 12/16/2016 SUBJECTIVE: Feels much better. OBJECTIVE: VITAL SIGNS: Temperature 98, heart rate 86, respiratory rate 16, blood pressure 106/69, saturation 1 00% on room air. LABORATORY DATA: Today 17,000 WBC, 676% segmented, hemoglobin 11.1, hematocrit 32.7. BREASTS: Left breast cellulitis has much decreased comparing to yesterday. The induration still pe rsists, a blister on the top of the area, 10 o'clock is present. ASSESSMENT: This is a 25-year-old female 4 weeks status post-delivery who has developed right breas t cellulitis and mastitis with a central fluid collection which was about 4 mL which was drained by Radiology. Repeat ultrasound did not reveal the presence of any abscess or fluid collection, only th e mastitis and cellulitis. This could be a lactating breast abscess or idiopathic granulomatous mas titis with central abscess formation. In any case, patient is receiving antibiotic yesterday. They changed the antibiotic to Rocephin and appears that this is working better on the patient. Patient is going to go home. PLAN: Patient is going to go home with PICC line and IV antibiotics and I told the patient that if she wishes she can come to my office next Thursday for followup. Dictated By: PRATIMA FORD/MAXINE Conf#: [id number] DID#: [id number]
[2016-12-16] MEDS: CEFTRIAXONE 2 GM/50 ML (PMX) 50 ML IVPB SCH (15:53)
== END 2016-12-16 18:10 | disposition home health service (06) | DRG 776 ==
LOC: E/R 20:34 → MS2 12-10 04:40
PROVIDERS: ADMIT Internal Medicine; ATTEND Internal Medicine
PROC: 0H9U3ZX Drainage of Left Breast, Percutaneous Approach, Diagnostic (ICD-10-PCS; 2016-12-11)
PROC: 02HV33Z Insertion of Infusion Device into Superior Vena Cava, Percutaneous Approach (ICD-10-PCS; principal; 2016-12-12)
DX: O91.22 Nonpurulent mastitis associated with the puerperium (principal); N39.0 Urinary tract infection, site not specified; D64.9 Anemia, unspecified
CPT/HCPCS: 36569; 71010; 76641; 76642; 76937; 76942; 80048; 80053; 81001; 81003; 82728; 83540; 83605; 83735; 84100; 84484; 85025; 85610; 85730; 87040; 87045; 87070; 87075; 87086; 93005; J0692; J0696; J1200; J2920; J3370; J7030; J7050